=== PATIENT | female | born 1955 | race Caucasian/White ===

== ENCOUNTER → 2019-01-24 | Outpatient (CLI) | payer OTHER | END | disposition home or self-care (01) | LOC: LABPAT 13:40 | PROVIDERS: ATTEND Orthopaedic Surgery Sports Medicine | DX: Z01.812 Encounter for preprocedural laboratory examination (principal) | CPT/HCPCS: 87070 ==

== ENCOUNTER 2019-02-09 12:30 | Day surgery (SDC) | payer OTHER ==
[2019-02-02 09:00] VITALS: BMI 28.6
[~2019-02-09 12:30] MED LIST: ACETAMINOPHEN TAB 325 MG TAB PO PRN; ACETAMINOPHEN TAB 500 MG TAB PO ONE; BISACODYL 10 MG SUPP RECTAL PRN; DEXAMETHASONE SOD PHOSPHATE 10 MG/ML 1 ML VIAL IV ONE; DIAZEPAM 5 MG TAB PO PRN; GABAPENTIN 300 MG CAP PO ONE; HYDROcodone/APAP 10-325MG 1 EACH TAB PO PRN; HYDROcodone/APAP 5-325MG 1 EACH TAB PO PRN; HYDROmorphone 0.5 MG/0.5 ML SYRINGE IVP PRN; HYDROmorphone 1 MG/ML 1 ML SYRINGE IVP PRN; LIDOCAINE 1% 20 ML VIAL (10MG/ML) FOR IV START INTRADERMA PRN; MAGNESIUM HYDROXIDE 2,400 MG/10 ML CUP PO PRN; MELOXICAM 7.5 MG TAB PO ONE; MIDAZOLAM 2 MG/2 ML VIAL IV PRN; NA PHOS,M-B/NA PHOS,DI-BA 133 ML ENEMA RECTAL PRN; NALOXONE 0.4 MG/ML 1 ML VIAL IV PRN; ONDANSETRON 4 MG/2 ML VIAL IVP ONE; ONDANSETRON 4 MG/2 ML VIAL IVP PRN; ROPIVACAINE 246.25 MG, EPINEPHrine 0.5 MG, KETOROLAC 30 MG, cloNIDine HCL/PF 80 MCG, WA... MISCELLANE ONE; SCOPOLAMINE 1.5MG/72HR PATCH TRANSDERM ONE; TEMAZEPAM 15 MG CAP PO PRN; TRANEXAMIC ACID 1,000 MG in SODIUM CHLORIDE 0.9% 100 ML IVPB ONE; traMADol 50 MG TAB PO PRN
[2019-02-09] MEDS: LACTATED RINGERS 1,000 ML IV SCH ×2 (13:27→19:34)
[2019-02-09] MEDS ORDERED: fentaNYL (PF) 50 MCG/ML 2 ML AMP ONE (14:14)
[2019-02-09] MEDS ORDERED: PROPOFOL 10 MG/ML 20 ML VIAL IV ONE (14:14)
[2019-02-09] MEDS ORDERED: KETAMINE 10 MG/ML 20 ML VIAL ONE (14:14)
[2019-02-09] MEDS ORDERED: MIDAZOLAM 2 MG/2 ML VIAL ONE (14:14)
[2019-02-09] MEDS ORDERED: MORPHINE SULFATE (PF) 0.3 MG/0.3 ML SYR ONE (14:14)
[2019-02-09] MEDS ORDERED: TRANEXAMIC ACID 1,000 MG/10 ML VIAL ONE (14:14)
[2019-02-09] MEDS ORDERED: SODIUM CHLORIDE 0.9% 100 ML BAG ONE (14:14)
[2019-02-09] MEDS ORDERED: ceFAZolin 3,000 MG in SODIUM CHLORIDE 0.9% IRRIGATIO 3,000 ML IRRIGATION ONE (14:45)
[2019-02-09] MEDS ORDERED: LACTATED RINGERS 1,000 ML IV ONE (15:42)
--- NOTE | 2019-02-09 16:54 | XR ---
EXAMINATION TYPE: XR knee limited RT DATE OF EXAM: 02/09/2019 COMPARISON: NONE HISTORY: Postop knee surgery TECHNIQUE: 2 views FINDINGS: There is left knee prosthesis. Components are in anatomic position. IMPRESSION: No complicating process seen.
[2019-02-09] MEDS: ASPIRIN 325 MG TAB PO SCH (20:34)
[2019-02-09] MEDS ORDERED: SENNOSIDES-DOCUSATE SODIUM 1 EACH TAB PO SCH (21:00)
[2019-02-10] MEDS ORDERED: MORPHINE SULFATE 2 MG/ML SYRINGE IVP STA (03:19)
[2019-02-10] MEDS ORDERED: diphenhydrAMINE 25 MG CAP PO STA (03:19)
--- NOTE | 2019-02-10 04:10 | P.HPIM ---
History of Present Illness H&P Date: 02/10/19 Chief Complaint: Post right total knee arthroplasty 64-year-old female with history of hypertension hyperlipidemia history of TIA Patient presented for scheduled right total knee arthroplasty due to severe advanced degenerative joint disease of the right knee failed outpatient conservative therapy. Patient tolerated procedure well with no observed immediate postoperative complications pain is well tolerated at this time. Denies any chest pain trouble breathing fevers chills abdominal pain nausea or vomiting. Tolerating by mouth intake. Patient passed urine. Medications reviewed and reconciled with the patient. Currently doing well she asked for medications to help her sleep and medications for itching otherwise she had no concerns at this time. Review of Systems Pertinent positives as noted in HPI. All other systems were reviewed and are negative Past Medical History Past Medical History: CVA/TIA, Hyperlipidemia, Hypertension, Osteoarthritis (OA) Additional Past Medical History / Comment(s): TIA-no residual effects, varicose veins, History of Any Multi-Drug Resistant Organisms: None Reported Past Surgical History: Back Surgery, Tonsillectomy Additional Past Surgical History / Comment(s): band and 6 screws in back, felisha hip replacement Past Anesthesia/Blood Transfusion Reactions: No Reported Reaction Past Psychological History: No Psychological Hx Reported Smoking Status: Former smoker Past Alcohol Use History: Occasional Additional Past Alcohol Use History / Comment(s): quit smoking 30 yrs ago, smoked for 5 yrs, "light smoker" Past Drug Use History: None Reported - Past Family History Mother Family Medical History: Cancer Additional Family Medical History / Comment(s): ovarian Medications and Allergies Home Medications Medication Instructions Recorded Confirmed Type Aspirin [Adult Low Dose Aspirin EC] 81 mg PO DAILY 02/02/19 02/09/19 History Atorvastatin [Lipitor] 40 mg PO DAILY 02/02/19 02/09/19 History Ferrous Sulfate [Iron] 650 mg PO DAILY 02/02/19 02/09/19 History Ibuprofen [Motrin] 800 mg PO BID PRN 02/02/19 02/09/19 History Lisinopril [Zestril] 5 mg PO HS 02/02/19 02/09/19 History Living Well Heel And Smooth 1 tab PO DAILY 02/02/19 02/09/19 History QUEtiapine [SEROquel] 100 mg PO HS 02/02/19 02/09/19 History Tamalex 2 tab PO DAILY 02/02/19 02/09/19 History Terbinafine HCl [LamISIL] 250 mg PO DAILY 02/02/19 02/09/19 History Allergies Allergy/AdvReac Type Severity Reaction Status Date / Time Penicillins Allergy Rash/Hives Verified 02/09/19 13:05 Physical Exam Vitals: Vital Signs Temp Pulse Resp BP Pulse Ox 02/09/19 20:30 90 97/68 95 02/09/19 20:15 85 108/72 93 L 02/09/19 20:00 89 117/75 92 L 02/09/19 19:45 87 105/67 93 L 02/09/19 19:30 91 97/70 93 L 02/09/19 19:16 97.8 F 87 16 119/80 94 L 02/09/19 19:15 86 105/72 97 02/09/19 19:00 87 106/67 95 02/09/19 18:45 84 100/69 97 02/09/19 18:30 81 110/69 98 02/09/19 18:26 90 16 124/74 97 02/09/19 18:00 97.8 F 83 16 116/76 97 02/09/19 17:30 75 16 112/62 97 02/09/19 17:19 75 16 109/59 99 02/09/19 17:05 76 16 109/59 98 02/09/19 16:49 76 16 110/59 97 02/09/19 16:34 80 16 110/59 92 L 02/09/19 16:19 97.5 F L 81 12 110/70 94 L 02/09/19 13:25 97 F L 80 16 134/79 96 Intake and Output 02/09/19 02/09/19 02/10/19 14:59 22:59 06:59 Intake Total 1051 300 Output Total 100 Balance 951 300 Intake: IV 1051 300 Output: Estimated Blood Loss 100 Other: Voiding Method Toilet # Voids 1 Weight 86.183 kg Constitutional: No acute distress, conversant, pleasant Eyes: Anicteric sclerae, moist conjunctiva, no lid-lag Pupils equal round reactive to light ENMT: NC/AT Oropharynx clear, no erythema, exudates Neck: Supple, FROM, no masses, or JVD No carotid bruits No thyromegaly Lungs: Clear to auscultation Clear to percussion Normal respiratory effort, no accessory muscle use Cardiovascular: Heart regular in rate and rhythm, No murmurs, gallops, or rubs No peripheral edema Abdominal: Soft Nontender, no guarding, rebound or rigidity Abdomen moving with respiration Normoactive bowel sounds No hepatomegaly, No splenomegaly No palpable mass No abdominal wall hernia noted Skin: Normal temperature, tone, texture, turgor No induration No subcutaneous nodules No rash, lesions No ulcers Extremities: No digital cyanosis No clubbing Pedal pulses intact and symmetrical Radial pulses intact and symmetrical No calf tenderness Psychiatric: Alert and oriented to person, place and time Appropriate affect fair judgment Neuro Muscles Strength 5/5 in all 4 extremities except for limited exam over right lower extremity secondary to status post op Sensation to light touch grossly present throughout Cranial nerves II-XII grossly intact No focal sensory deficits Lymphatics: no palpable cervical or supraclavicular , or inguinal lymph nodes Thrombosis Risk Factor Assmnt - Choose All That Apply Any of the Below Risk Factors Present?: Yes Each Factor Represents 1 point: Obesity (BMI >25) Other Risk Factors: Yes Each Risk Factor Represents 2 Points: Age 61-74 years Other congenital or acquired thrombophilia - If yes, enter type in comment: Yes Each Risk Factor Represents 5 Points: Elective major lower extremity arthoplasty Thrombosis Risk Factor Assessment Total Risk Factor Score: 8 Thrombosis Risk Factor Assessment Level: High Risk Assessment and Plan Assessment: 63-year-old female with history of osteoarthritis and hypertension admitted under orthopedics for right total knee arthroplasty due to severe advanced degenerative joint disease medicine was consulted for medical management postoperatively currently patient has no active complaints Plan: Severe advanced degenerative joint disease status post right total knee arthroplasty Pain control and DVT prophylaxis per orthopedics Chronic conditions Hypertension Hyperlipidemia History of TIA Resume home meds Follow-up morning labs Medications reviewed and reconciled Encouraged to use incentive spirometry Thank you for allowing us to participate in the care of this patient. Do not hesitate to contact us with questions. Someone can be reached from the [facility] hospitalist group at all hours of the day at [phone].
[2019-02-10] MEDS: LACTATED RINGERS 1,000 ML IV SCH ×2 (05:34)
--- NOTE | 2019-02-10 05:49 | OP ---
OPERATIVE REPORT DATE OF PROCEDURE: 02/09/2019 SURGEON: Harley Nuñez MD. STEEL POURER: Gino VILLALBA. PREOPERATIVE DIAGNOSIS: Right knee osteoarthrosis. POSTOPERATIVE DIAGNOSIS: Right knee osteoarthrosis. OPERATION: Right total knee arthroplasty. ANESTHESIA: Spinal with sedation. ESTIMATED BLOOD LOSS: 100 mL. TOURNIQUET TIME: Tourniquet time was 54 minutes at 250 mmHg. COMPLICATIONS: None apparent. DRAINS: None. DISPOSITION: Postanesthesia care unit. INDICATIONS: Tiffanie is a very pleasant 63-year-old female with longstanding history of right knee pain. History and physical examination are consistent with advanced right knee osteoarthrosis. She has been through significant nonoperative management up to this point. Further treatment options were discussed and she has decided to go for the right total knee arthroplasty. The risks of procedure were discussed with her in detail. These risks include, but are not limited to risk of infection, nerve damage, bleeding, pain and risk of deep vein thrombosis which could lead to fatal pulmonary embolism. There is also risk of loosening of the implant which could require revision operation. The patient understands these risks. All of her questions were answered to her satisfaction. An appropriate informed consent was obtained. DESCRIPTION OF PROCEDURE: The patient identified in preoperative holding area. Surgical sites marked by both the patient and myself. She was given 2 grams of Ancef IV for prophylactic purposes. She was then transferred to the operative suite. She was placed supine on the operating room table. Spinal anesthetic was then administered and dosed per the anesthesia department without apparent complication. Examination under anesthesia was then performed. The patient was 2 to 3 degrees shy of full extension. She had 100 degrees of flexion. The medial collateral ligament, lateral collateral ligament and posterior cruciate ligaments were stable. Tourniquet was then placed high on the right upper thigh well-padded in preparation for surgery. The patient's right lower extremity was then prepped and draped in usual sterile fashion. Standard surgical pause then undertaken to ensure that we were operating the correct site and that appropriate preoperative antibiotics were given. All staff in the room in agreement. We proceeded. The outlines of the patella were marked surgical pen. A planned 12 cm vertical incision centered over the patella was marked with surgical pen. Leg was then exsanguinated with an Esmarch dressing. The knee was then flexed and tourniquet was inflated to 250 mmHg. The total tourniquet time for the procedure was 54 minutes. Incision was then made with a 10 blade scalpel. Dissection carried down sharply of overlying fascia. Great care was taken to minimize the skin flaps. The knee was then exposed using standard medial parapatellar approach. A small cuff of quadriceps tendon was then left for suturing. She was in a mild amount of varus preoperatively. A standard medial release was then made. Superficial medial collateral ligament was dissected off the bone around to the posterior aspect of the proximal tibia. The medial meniscus was then excised as well. The lateral meniscus was also released anteriorly. The leg was then externally rotated. The patella was everted. The knee was flexed. The retractors were then placed to protect the collateral ligaments. I then proceeded to remove the infrapatellar fat pad. This was excised sharply, tangentially with the fibers of the patellar tendon. I then proceeded to remove the peripheral osteophytes. She had extensive peripheral osteophytes. This was done with rongeur. I then proceeded with the distal femoral resection. She did have near full extension. The planned 9 mm resection was then done. The femoral canal was then entered in midline of the femur approximately 10 mm anterior to the origin of the posterior cruciate ligament. The stephanie was then advanced down the center of the femur and placed intramedullary. Based on the preoperative radiographs, the angle between the anatomic and mechanical axis of the femur was approximately 4 to 5 degrees. The valgus angle of the distal femoral cutting guide was then set at 4 degrees for the right knee. This femoral cutting guide was then advanced over the intramedullary stephanie. This was seated firmly against the femur. I then as mentioned planned to take 9 mm off the distal femur. The cutting block was then secured onto the femur with pins. The jig was then removed. The distal femoral cut was made through the slot of the block. The pins were then removed and the distal femoral cutting block was removed. The accuracy of the distal femoral cuts was checked with 2 flat bars. I then proceed with femoral sizing. Posterior referencing sizing guide was held firmly against the resected distal surface of the femur. The posterior condyles were resting on the posterior plane of the guide. The sizing stylus was then placed onto the anterior femur. The size was measured as a size 5. I then assessed for femoral rotation. The plan was for 3 degrees of external rotation. Three degrees of external rotation was placed onto the jig. These holes were then marked. I then confirmed the right rotation by 3 separate methods. This done using the epicondylar axis as well as Whitesides line and posterior referencing. It was deemed that the external rotation was proper. I then went forward with placing the femoral cutting block. This was placed over the previously placed pin holes. The Dick wing was then placed on the anterior slots to ensure that we would not notch the anterior femur with the anterior femoral cut. I then proceed with the anterior femoral cut. This was flush with the anterior cortex of the femur. Posterior cuts were then made followed by the anterior chamfer cut, then the posterior chamfer cut. The cutting block was then removed. Throughout the resection, the collateral ligaments were protected with retractors. I then placed a trial size 5 femur. It fit very nice medial-lateral and fit flush with the distal end of the femur. The drill holes were then made. I then proceeded with the tibial cut. I planned for cruciate retaining knee. The guide was placed in separate varus valgus and for slope. The height was set for approximate 2 mm resection from the medial tibial plateau which was the lower side. I was happy with the alignment and amount of resection. The cutting block was then pinned to the proximal tibia. The alignment stephanie was removed. The proximal tibia was resected with a reciprocating saw. Again this was done with retractors protecting the collateral ligaments as well as the posterior cruciate ligament. I then proceeded to evaluate the flexion and extension gaps. A 10 mm block was then placed. The flexion and extension gaps were equal. I then proceeded with resection of posterior osteophytes. She had very minimal posterior osteophytes. This was done using a curved osteotome. The resected posterior osteophytes and the posterior capsule stripping was also done off the posterior aspect of the femur at this time. The osteophytes were removed. I then proceed to resection of patella. The thickness of the patella was measured using the caliper. The thickness was 22 mm. The thickness of the anticipated patellar dome was taken into account. The resection was performed and confirmed to be equal in 4 quadrants using a caliper. Approximately 14 mm of bone remained after resection. A 29 x 8 standard patellar trial was then placed. The holes were drilled and the trial was then placed. I then proceed with sizing tibial plate. A size D tibial plate fit very nicely. I then placed the trial femur, the tibial tray and the patellar button. A 10 mm trial tibial insert was also placed. The components fit very nicely. She had full extension and flexion. The extension and flexion gaps were equal and stable, both varus and valgus stress. The patella tracked appropriately. Tibial tray rotation was marked with a Bovie. This was externally rotated properly. I then proceeded with tibial preparation. I first drilled the femoral holes, removed femoral component. The tibial tray was then set for proper external rotation as well as mediolateral placement onto the tibia. It was then pinned into place. I then proceeded with punching the keel. I then decided to proceed with cementing of all of our components. The knee was thoroughly irrigated with sterile saline solution via pulse lavage. The lateral genicular artery was identified and cauterized. All blood was removed from the bone of the tibia, femur and patella with pulse lavage. I then proceed with cementing. Two packs of antibiotic bone cement were prepared on the back table by the surgical device sales representative. I then proceed with cementing of the tibia first. The cement was impacted into the keel as well as deeply seated in the bone. A second coat of cement was then placed. The tibia was then impacted into place. Excess cement was removed with Cushings and Jokers. I then proceeded with cementing the femoral component. The femoral component was also cemented using standard technique. Excess cement was removed. A 10 mm trial insert was then placed into the knee. It was brought into full extension with a constant axial load placed until the cement had hardened. The patellar component was then cemented. This held firmly with a compressive device until the cement had dried. When the cement had dried, the knee was taken out of extension. All excess cement was removed from around the prosthesis. I then trialed the knee with 10 mm insert. The flexion and extension gaps were appropriate. The knee was stable. It came into full extension. I decided to go forward with the 10 mm cross-linked cruciate-retaining tibial insert. Polyethylene was then placed onto the tibial tray and locked into place. The knee was then reduced. The knee was again further irrigated with sterile saline solution with antibiotic added. The tourniquet was then deflated. Total tourniquet time for the procedure was 54 minutes. Final components were Tamika Persona size 5 cruciate-retaining femoral component, a size D tibial tray, a 10 mm medial congruent cruciate-retaining polyethylene insert, and a 29 x 8 mm patella. I then proceeded with closure. Again, the knee was thoroughly irrigated. The quadriceps tendon and the medial retinaculum were reapproximated with #2 Ethibond suture. The extensor mechanism was then closed with a running #2 Quill suture. Subcutaneous tissues were then closed with 2-0 Vicryl interrupted suture. The skin was closed with a running 3-0 Quill suture. Dermabond was then applied to the incision. Sterile compressive dressing was then applied. All sponge and needle counts were deemed correct prior to closure. The patient tolerated the procedure without apparent complication. She was transferred recovery room in stable condition. MMODL / IJN: [id number] /
[2019-02-10] MEDS: ASPIRIN 325 MG TAB PO SCH (07:20)
[2019-02-10 07:28] VITALS: BP 111/76; PULSE 72; RESP 14; TEMP 98.5
[2019-02-10 08:33] LABS: Basophils # (A) 0.1 k/uL (0-0.2); Basophils % (A) 1 %; Eosinophils % (A) 0 %; HCT 36.6 % (34.0-46.0); HGB 11.9 gm/dL (11.4-16.0); Lymphocytes # (A) 0.9 k/uL (1.0-4.8); Lymphocytes % (A) 10 %; MCH 31.3 pg (25.0-35.0); MCHC 32.4 g/dL (31.0-37.0); MCV 96.6 fL (80.0-100.0); Mean Platelet Volume 7.7; Monocytes # (A) 0.4 k/uL (0-1.0); Monocytes % (A) 5 %; Neutrophils # (A) 7.6 k/uL (1.3-7.7); Neutrophils % (A) 83 %; Platelet Count 218 k/uL (150-450); RBC 3.78 m/uL (3.80-5.40); RDW 13.9 % (11.5-15.5); WBC 9.2 k/uL (3.8-10.6)
[2019-02-10] MEDS ORDERED: ATORVASTATIN 40 MG TAB PO SCH (09:00)
--- NOTE | 2019-02-10 09:15 | P.DS ---
Providers Expected date of discharge: 02/10/19 Attending physician: Harley Nuñez Consults: 02/09/19 12:03 Consult Physician Routine Consulting Provider: Tali Physician Consult Reason/Comments: post op medical management Do you want consulting provider notified?: Yes Primary care physician: [place] Tuttle - Discharge Diagnosis(es) (1) Osteoarthritis of right knee Patient was admitted to the OR on 02/09/2019 to undergo a right total knee arthroplasty. She had failed conservative measures an outpatient and desired to proceed with elective surgery after given informed consent.. She underwent the above procedure which she tolerated well without complication. Postoperative hospital course has remained without complication. On day of discharge she is afebrile, vital signs stable, labs within acceptable ranges, tolerating by mouth meds and diet, voiding without difficulty, positive flatus, denies abdominal pain or calf pain, pain is controlled on oral pain medication and has no new complaints. Wound is benign, neurovascular status is intact, calf is soft and nontender, abdomen soft and nontender. Review of systems is negative for numbness, tingling, fever, chills, chest pain, shortness of breath, nausea, vomiting, dizziness, headaches, slurred speech or other. Current Visit: Yes Status: Acute Priority: Medium (2) Status post total right knee replacement Current Visit: Yes Status: Acute Procedures: Right TKA Patient Condition at Discharge: Good Plan - Discharge Summary Discharge Rx Participant: Yes New Discharge Prescriptions: New Aspirin 325 mg PO BID #60 tab Docusate [Colace] 100 mg PO BID #60 capsule HYDROcodone/APAP 7.5-325MG [[place] 7.5-325] 1 - 2 each PO Q6HR PRN #56 tab PRN Reason: Pain No Action QUEtiapine [SEROquel] 100 mg PO HS Terbinafine HCl [LamISIL] 250 mg PO DAILY Ferrous Sulfate [Iron] 650 mg PO DAILY Atorvastatin [Lipitor] 40 mg PO DAILY Ibuprofen [Motrin] 800 mg PO BID PRN PRN Reason: Pain Aspirin [Adult Low Dose Aspirin EC] 81 mg PO DAILY Lisinopril [Zestril] 5 mg PO HS Tamalex 2 tab PO DAILY Living Well Heel And Smooth 1 tab PO DAILY Discharge Medication List Aspirin [Adult Low Dose Aspirin EC] 81 mg PO DAILY 02/02/19 [History] Atorvastatin [Lipitor] 40 mg PO DAILY 02/02/19 [History] Ferrous Sulfate [Iron] 650 mg PO DAILY 02/02/19 [History] Ibuprofen [Motrin] 800 mg PO BID PRN 02/02/19 [History] Lisinopril [Zestril] 5 mg PO HS 02/02/19 [History] Living Well Heel And Smooth 1 tab PO DAILY 02/02/19 [History] QUEtiapine [SEROquel] 100 mg PO HS 02/02/19 [History] Tamalex 2 tab PO DAILY 02/02/19 [History] Terbinafine HCl [LamISIL] 250 mg PO DAILY 02/02/19 [History] Aspirin 325 mg PO BID #60 tab 02/10/19 [Rx] Docusate [Colace] 100 mg PO BID #60 capsule 02/10/19 [Rx] HYDROcodone/APAP 7.5-325MG [[place] 7.5-325] 1 - 2 each PO Q6HR PRN #56 tab 02/10/19 [Rx] Follow up Appointment(s)/Referral(s): Harley Nuñez MD [STAFF PHYSICIAN] - 10 Days Activity/Diet/Wound Care/Special Instructions: Keep wound clean and dry Take meds as directed Follow-up with Dr. Nuñez in office Weight bear as tolerated May shower in 3 days if no bleeding Discharge Disposition: HOME WITH HOME HEALTH SERVICES
[2019-02-10] MEDS ORDERED: diphenhydrAMINE 50 MG CAP PO STA (10:47)
[2019-02-10] MEDS ORDERED: MULTIVITAMINS, THERA 1 EACH TAB PO SCH (12:00)
[2019-02-10] MEDS ORDERED: LISINOPRIL 5 MG TAB PO SCH (21:00)
[2019-02-10] MEDS ORDERED: QUEtiapine 100 MG TAB PO SCH (21:00)
== END 2019-02-10 12:54 | disposition home health service (06) ==
LOC: OR 12:30 → 4SSUR 16:19 → OR 02-10 12:54
PROVIDERS: ATTEND Orthopaedic Surgery Sports Medicine
DX: M17.11 Unilateral primary osteoarthritis, right knee (principal); I10 Essential (primary) hypertension; E78.5 Hyperlipidemia, unspecified; Z86.73 Personal history of transient ischemic attack (TIA), and cerebral infarction without residual deficits; Z79.82 Long term (current) use of aspirin; Z87.891 Personal history of nicotine dependence; Z88.0 Allergy status to penicillin; Z79.1 Long term (current) use of non-steroidal anti-inflammatories (NSAID); Z79.899 Other long term (current) drug therapy; Z80.9 Family history of malignant neoplasm, unspecified; Z98.890 Other specified postprocedural states; Z96.643 Presence of artificial hip joint, bilateral
CPT/HCPCS: 97161; 85025; 88300; 73560; 27447; C1776; C1713; J2250; J0171; J1100; J0690 ×3; J2405; J2274; J3010; J1885; J2270; J2795; J2704; J0735

== ENCOUNTER → 2019-07-01 | Outpatient (CLI) | payer OTHER ==
[2019-07-01 11:17] LABS: Appearance,Urine Clear (Clear); Bacteria,Urine Occasional /hpf; Bilirubin,Urine Negative (Negative); Blood,Urine Negative (Negative); Color,Urine Yellow; Glucose,Urine (UA) Negative (Negative); Ketones,Urine Negative (Negative); Leukocyte Esterase,Urine Small (Negative); Mucus,Urine Rare /hpf; Nitrite,Urine Negative (Negative); Protein,Urine Negative (Negative); Specific Gravity,Urine 1.013 (1.001-1.035); Squamous Epithelial Cell,Urine 1 /hpf (0-4); Urobilinogen,Urine <2.0 mg/dL (<2.0); WBC,Urine 10 /hpf (0-5)
[2019-07-01 11:18] LABS: HCT 35.4 % (34.0-46.0); HGB 11.2 gm/dL (11.4-16.0); MCH 28.9 pg (25.0-35.0); MCHC 31.6 g/dL (31.0-37.0); MCV 91.4 fL (80.0-100.0); Mean Platelet Volume 7.7; Platelet Count 242 k/uL (150-450); RBC 3.87 m/uL (3.80-5.40); RDW 14.5 % (11.5-15.5)
[2019-07-01 11:26] LABS: INR 0.9 (<1.2); Partial Thromboplastin Time 22.9 sec (22.0-30.0); Prothrombin Time 9.8 sec (9.0-12.0)
[2019-07-01 11:27] LABS: Albumin 4.1 g/dL (3.5-5.0); Calcium 9.3 mg/dL (8.4-10.2); Potassium 4.6 mmol/L (3.5-5.1); Total Bilirubin 0.6 mg/dL (0.2-1.3); Total Protein 7.1 g/dL (6.3-8.2)
== END | disposition home or self-care (01) ==
LOC: LABPAT 10:39
PROVIDERS: ATTEND Orthopaedic Surgery Sports Medicine
DX: Z01.812 Encounter for preprocedural laboratory examination (principal); M17.12 Unilateral primary osteoarthritis, left knee
CPT/HCPCS: 36415; 80053; 81001; 85027; 85610; 85730; 87070

== ENCOUNTER 2019-07-13 13:07 | Day surgery (SDC) | payer OTHER ==
[~2019-07-13 13:07] MED LIST changes: -ACETAMINOPHEN TAB 325 MG TAB PO PRN; -BISACODYL 10 MG SUPP RECTAL PRN; -DEXAMETHASONE SOD PHOSPHATE 10 MG/ML 1 ML VIAL IV ONE; -DIAZEPAM 5 MG TAB PO PRN; -HYDROcodone/APAP 10-325MG 1 EACH TAB PO PRN; -HYDROcodone/APAP 5-325MG 1 EACH TAB PO PRN; -HYDROmorphone 0.5 MG/0.5 ML SYRINGE IVP PRN; -HYDROmorphone 1 MG/ML 1 ML SYRINGE IVP PRN; -LIDOCAINE 1% 20 ML VIAL (10MG/ML) FOR IV START INTRADERMA PRN; -MAGNESIUM HYDROXIDE 2,400 MG/10 ML CUP PO PRN; -MIDAZOLAM 2 MG/2 ML VIAL IV PRN; -NA PHOS,M-B/NA PHOS,DI-BA 133 ML ENEMA RECTAL PRN; -NALOXONE 0.4 MG/ML 1 ML VIAL IV PRN; -ONDANSETRON 4 MG/2 ML VIAL IVP PRN; -ROPIVACAINE 246.25 MG, EPINEPHrine 0.5 MG, KETOROLAC 30 MG, cloNIDine HCL/PF 80 MCG, WA... MISCELLANE ONE; -SCOPOLAMINE 1.5MG/72HR PATCH TRANSDERM ONE; -TEMAZEPAM 15 MG CAP PO PRN; -traMADol 50 MG TAB PO PRN
[2019-07-13] MEDS ORDERED: LACTATED RINGERS 1,000 ML IV ONE ×2 (13:50→15:36)
[2019-07-13] MEDS ORDERED: MIDAZOLAM 2 MG/2 ML VIAL IVP ONE (13:57)
[2019-07-13] MEDS ORDERED: fentaNYL (PF) 50 MCG/ML 2 ML AMP IVP ONE (13:59)
[2019-07-13] MEDS ORDERED: NEOSTIGMINE 1 MG/ML 10 ML VIAL ONE (14:16)
[2019-07-13] MEDS ORDERED: GLYCOPYRROLATE 0.2 MG/ML 2 ML VIAL ONE (14:16)
[2019-07-13] MEDS ORDERED: fentaNYL (PF) 50 MCG/ML 2 ML AMP ONE (14:16)
[2019-07-13] MEDS ORDERED: TRANEXAMIC ACID 1,000 MG/10 ML VIAL ONE (14:16)
[2019-07-13] MEDS ORDERED: PROPOFOL 10 MG/ML 20 ML VIAL IV ONE (14:16)
[2019-07-13] MEDS ORDERED: MIDAZOLAM 2 MG/2 ML VIAL ONE (14:16)
[2019-07-13] MEDS ORDERED: SUCCINYLCHOLINE CHLORIDE 100 MG/5 ML SYR IV ONE (14:16)
[2019-07-13] MEDS ORDERED: SODIUM CHLORIDE 0.9% 100 ML BAG ONE (14:16)
[2019-07-13] MEDS ORDERED: ePHEDrine SULFATE/0.9% NACL/PF 50 MG/5 ML SYRINGE IV ONE (14:16)
[2019-07-13] MEDS ORDERED: LIDOCAINE 1% INJ 10MG/ML (20 ML MDV) ONE (14:16)
[2019-07-13] MEDS ORDERED: ROCURONIUM BROMIDE 10 MG/ML 5 ML VIAL IV ONE (14:16)
[2019-07-13] MEDS ORDERED: ceFAZolin 3,000 MG in SODIUM CHLORIDE 0.9% IRRIGATIO 3,000 ML IRRIGATION ONE (14:51)
[2019-07-13] MEDS: ROPIVACAINE 246.25 MG, EPINEPHrine 0.5 MG, KETOROLAC 30 MG, cloNIDine HCL/PF 80 MCG, WA... MISCELLANE ONE ×10 (15:07→15:35)
[2019-07-13] MEDS ORDERED: ROPIVACAINE 0.2%-NS ON-Q PUMP 1,090 MG, EMPTY PAIN BALL 1 EACH MISCELLANE PRN (16:16)
[2019-07-13] MEDS ORDERED: TEMAZEPAM 15 MG CAP PO PRN (16:23)
[2019-07-13] MEDS ORDERED: NA PHOS,M-B/NA PHOS,DI-BA 133 ML ENEMA RECTAL PRN (16:23)
[2019-07-13] MEDS ORDERED: BISACODYL 10 MG SUPP RECTAL PRN (16:23)
[2019-07-13] MEDS ORDERED: HYDROmorphone 1 MG/ML 1 ML SYRINGE IVP PRN (16:23)
[2019-07-13] MEDS ORDERED: HYDROmorphone 0.5 MG/0.5 ML SYRINGE IVP PRN ×2 (16:23)
[2019-07-13] MEDS ORDERED: NALOXONE 0.4 MG/ML 1 ML VIAL IV PRN (16:23)
[2019-07-13] MEDS ORDERED: ONDANSETRON 4 MG/2 ML VIAL IVP PRN (16:23)
[2019-07-13] MEDS ORDERED: MAGNESIUM HYDROXIDE 2,400 MG/10 ML CUP PO PRN (16:23)
[2019-07-13] MEDS ORDERED: HYDROcodone/APAP 7.5-325MG 1 EACH TAB PO PRN (16:27)
[2019-07-13] MEDS ORDERED: HYDROmorphone 0.5 MG/0.5 ML SYRINGE IVP ONE (16:55)
--- NOTE | 2019-07-13 16:55 | XR ---
EXAMINATION TYPE: XR knee limited LT DATE OF EXAM: 07/13/2019 COMPARISON: None HISTORY: Postop evaluation TECHNIQUE: 2 view left knee FINDINGS: Tibial femoral compartment syndrome place. Soft tissue changes from surgery are evident. No acute fractures or dislocations are evident. IMPRESSION: 1. No acute fractures post knee revision
[2019-07-13] MEDS: LACTATED RINGERS 1,000 ML IV SCH ×2 (17:41→19:44)
[2019-07-13] MEDS: HYDROcodone/APAP 7.5-325MG 1 EACH TAB PO PRN (17:51)
[2019-07-13] MEDS ORDERED: QUEtiapine 100 MG TAB PO SCH (21:00)
[2019-07-13] MEDS ORDERED: SENNOSIDES-DOCUSATE SODIUM 1 EACH TAB PO SCH (21:00)
[2019-07-13] MEDS ORDERED: LISINOPRIL 5 MG TAB PO SCH (21:00)
[2019-07-13] MEDS: ASPIRIN 325 MG TAB PO SCH (21:27)
--- NOTE | 2019-07-13 23:31 | OP ---
OPERATIVE REPORT PROCEDURE: 07/13/2019. SURGEON: Harley Nuñez M.D. JAVA PROGRAMMER ANALYST: Caryn Mast NP. PREOPERATIVE DIAGNOSIS: Left knee osteoarthrosis. POSTOP DIAGNOSIS: Left knee osteoarthrosis. OPERATION PERFORMED: Left total knee arthroplasty. ANESTHESIA: Spinal with sedation. ESTIMATED BLOOD LOSS: 100 mL. TOURNIQUET TIME: 51 minutes at 250 mmHg. COMPLICATIONS: None apparent. DRAINS: None. DISPOSITION: Postanesthesia care unit. INDICATIONS: Tiffanie is a 63-year-old female with longstanding history of left knee pain. History and physical examination are consistent with advanced left knee osteoarthrosis. She has been through significant operative management at this point. Further treatment options were discussed and she has decided to go forward with left total knee arthroplasty. Risks of procedure were discussed with her in detail. These risks included, but were not limited to risk of infection, nerve damage, bleeding, pain, and a small risk of deep vein thrombosis which could lead to fatal pulmonary embolism. There is also risk of loosening of the implant which could require revision operation. The patient understands these risks. All of her questions were answered to her satisfaction. Appropriate informed consent was obtained. DESCRIPTION OF PROCEDURE: Patient identified in preop holding area. Surgical sites marked by both the patient and myself. She was given 2 g of Ancef IV for prophylactic purposes. She was then transferred to the operative suite. She was placed supine on the operative table. Spinal anesthetic was then administered, dosed per the anesthesia without apparent complication. Examination under anesthesia was then performed. The patient was 2-3 degrees shy of full extension. She had 100 degrees of flexion. Medial collateral ligament, lateral collateral ligament posterior cruciate ligaments were stable. Tourniquet was then placed high on the left upper thigh well-padded in preparation for surgery. The patient's left lower extremity then prepped and draped in usual sterile fashion. Standard surgical pause undertaken to ensure that we were operating the correct site and that appropriate preoperative antibiotics were given. All staff were in agreement we proceeded. The outlines of the patella were marked with a surgical pen. A planned 12 cm vertical incision centered over the patella was marked with a surgical pen. Leg was exsanguinated with an Esmarch dressing. The knee was then flexed and the tourniquet was inflated to 250 mmHg. The total tourniquet time for the procedure was 51 minutes. Incision was then made with a 10 blade scalpel. Dissection carried down sharply overlying fascia. Great care was taken to minimize the skin flaps. The knee was then exposed using a standard medial parapatellar approach. A small cuff of quadriceps tendon was then left for suturing. She was in a bit of varus preoperatively. Standard medial release was then made. Superficial medial collateral ligament dissected off the bone around the posterior aspect of the proximal tibia. The medial meniscus was then excised as well. The lateral meniscus was also released anteriorly. The leg was then externally rotated. The patella was everted. The knee was flexed. Retractors were then placed to protect the collateral ligaments. I then proceeded to remove the infrapatellar fat pad. This was excised sharply tangentially with the fibers of the patellar tendon. I then proceeded to remove peripheral osteophytes. This was done with a rongeur. I then proceeded with the distal femoral resection. She did have near full extension. A planned 9 mm resection was then done. The femoral canal was then entered in midline of the femur approximately 10 mm anterior to the origin of the posterior cruciate ligament. The stephanie was then advanced down the center of the femur and placed intramedullary. Based on the preoperative radiographs, the angle between the anatomic and mechanical axis of the femur was approximately 4-5 degrees. The valgus angle of the distal femoral cutting guide was then set at 4 degrees for the left knee. The distal femoral cutting guide was then advanced over the intramedullary stephanie. This was seated firmly against the femur. I then as mentioned planned to take 9 mm off the distal femur. The cutting block was then secured onto the femur with pins. The jig was removed. The distal femoral cut was made through the slot of the block. The pins were then removed. The distal femoral cutting block was removed. The accuracy of the distal femoral cuts was checked with 2 flat bars. I then proceeded to femoral sizing. Posterior referencing sizing guide was held firmly against the resected distal surface of the femur. The posterior condyles were resting on the posterior plane of the guide. The sizing stylus was then placed onto the anterior femur. The size was measured as a size 5. I then assessed for femoral rotation. Plan was for 3 degrees external rotation. Three degrees external rotation was placed onto the jig. These holes were then marked. I then confirmed the rotation by 3 separate methods. This was done using epicondylar axis as well as Whitesides line and posterior referencing. It was deemed that the external rotation was proper. I then went forward with placing the femoral cutting block. This placed over the previously placed pin holes. The Dick wing was then placed onto the anterior slots to ensure that we would not notch the anterior femur with the anterior femoral cut. I then proceed with the anterior femoral cut. This was flush with the anterior cortex of the femur. The posterior cuts were then made followed by the anterior chamfer cut, then the posterior chamfer cut. The cutting block was then removed. Throughout the resection, the collateral ligaments were protected with retractors. I then placed a trial size 5 femur. It fit very nice medial-lateral and fit of fit flush with the distal end of the femur. The drill holes were then made. I then proceeded with the tibial cut. I planned for cruciate retaining knee. The guide was placed and set for varus valgus and for slope. The height set for approximate 2 mm resection from the medial tibial plateau which was the lower side. I was happy with the alignment and the amount of resection. The cutting block was then pinned to the proximal tibia. The alignment stephanie was then removed. The proximal tibia was resected with a reciprocating saw. Again this was done with retractors protecting the collateral ligaments as well as the posterior cruciate ligament. I then proceeded to evaluate the flexion extension gaps. A 10 mm block was then placed. The flexion-extension gaps were equal. I then proceeded to resection of posterior osteophytes. She had very extensive posterior osteophytes. This was done using a curved osteotome. This resected the posterior osteophytes and posterior capsule stripping was also done off the posterior aspect of the femur at this time. The osteophytes were then removed. I then proceeded with resection of the patella. The thickness of patella was measured using a caliper. The thickness was 22 mm. The thickness of the anticipated patellar dome was then taken into account. Resection was then performed and confirmed to be equal in 4 quadrants using a caliper. Approximately 14 mm of bone remained after resection. A 29 x 8 standard patellar trial was then placed. The holes were drilled. The trial was then placed. I then proceeded with sizing the tibial plate. A size D tibial plate fit very nicely. I then placed the trial femur the tibial tray and patellar button. A 10 mm trial tibial insert was also placed. The components fit very nicely. She had full extension and flexion. The extension and flexion gaps were equal and stable to both varus and valgus stress. The patella tracked appropriately. Tibial tray rotation was then marked with a Bovie. This was externally rotated properly. I then proceed with tibial preparation. First drilled the femoral holes and removed femoral component. The tibial tray was then set for proper external rotation as well as mediolateral placement onto the tibia. It was then pinned into place. I then proceeded with punching the keel. I then decided to proceed with cementing of all of our components. The knee was thoroughly irrigated with sterile saline solution via pulse lavage. The lateral geniculate artery was identified and cauterized. All blood was removed from the bone of the tibia, femur and patella with pulse lavage. I then proceeded with cementing. Two packs of antibiotic bone cement was prepared on the back table by the regional vice president surgical sales. I then proceeded with cementing the tibia first. The cement was impacted into the keel as well as deeply seated in the bone. A second coat of cement was then placed. The tibia was then impacted into place. Excess cement was removed with Billy's and Joker's. I then proceed with cementing of the femoral component. The femoral component was also cemented using standard technique. Excess cement was removed. A 10 mm trial insert was then placed into the knee. It was brought into full extension with a constant axial load placed until the cement had hardened. The patellar component was then cemented. This held firmly with a compressive device until the cement had dried. When the cement had dried, the knee was taken out of extension. All excess cement was removed from around the prosthesis. I then trialed the knee with a 10 mm insert. Flexion extension gaps were appropriate. The knee was stable. It came into full extension. I decided to go for the 10 mm cross-linked cruciate-retaining tibial insert. Polyethylene was then placed on the tibial tray and locked into place. The knee was then reduced. The knee was again further irrigated with sterile saline solution with antibiotic added. The tourniquet was then deflated. The total tourniquet time for the procedure was 51 minutes at 250 mmHg. Final components were Tamika Persona size 5 cruciate-retaining femoral component, a size D tibial tray, a 10 mm medial congruent cruciate-retaining tibial polyethylene insert and a 29 x 8 mm patella. I then proceeded with closure. Again, the knee was thoroughly irrigated. The quadriceps tendon and the medial retinaculum were reapproximated with #2 Ethibond suture. The extensor mechanism was then closed with a running #2 Quill suture. Subcutaneous tissues were then closed with 2-0 Vicryl interrupted suture. The skin was closed with a running 3-0 Quill suture. Dermabond was applied to the incision. Sterile compressive dressing was then applied. All sponge and needle counts were deemed correct prior to closure. The patient tolerated the procedure without apparent complication. She was transferred to recovery room in stable condition. MMODL / IJN: [id number] /
[2019-07-14 02:21] VITALS: BP 110/72
[2019-07-14] MEDS: LACTATED RINGERS 1,000 ML IV SCH (05:36)
[2019-07-14] MEDS: HYDROcodone/APAP 7.5-325MG 1 EACH TAB PO PRN (05:36)
--- NOTE | 2019-07-14 07:40 | P.ANPRN ---
Procedure Note - Anesthesia - Nerve Block Performed Left Adductor Canal Infusion Time Out Performed: Yes Date of Procedure: 07/13/19 Procedure Start Time: 14:00 Procedure Stop Time: 14:10 Location of Patient: PreOp Indication: Acute Post-Operative Pain, Dx/Pain Location, Requested by Surgeon Sedation Type: Sedate with meaningful contact maintained Preparation: Sterile Prep Position: Supine Catheter: Indwelling Needle Types: Pajunk Needle Gauge: 21 Ultrasound used to visualize needle placement: Yes Ultrasound used to observe medication spread: Yes Injectate: 0.5% Ropivacaine (see comment for volume) (20ml) Blood Aspirated: No Pain Paresthesia on Injection Noted: No Resistance on Injection: Normal Image Stored and Saved: Yes Events: Uneventful and Well Tolerated
--- NOTE | 2019-07-14 07:41 | P.ANPRN ---
Procedure Note - Anesthesia - Nerve Block Performed Left Other (see comment) Single Time Out Performed: Yes (LEFT IPACK NERVE BLOCK ) Date of Procedure: 07/13/19 Procedure Start Time: 14:00 Procedure Stop Time: 14:10 Location of Patient: PreOp Indication: Acute Post-Operative Pain, Dx/Pain Location, Requested by Surgeon Sedation Type: Sedate with meaningful contact maintained Preparation: Sterile Prep Position: Left Lateral Catheter: None Needle Types: Pajunk Needle Gauge: 21 Ultrasound used to visualize needle placement: Yes Ultrasound used to observe medication spread: Yes Injectate: Other (see comment) (8ml 0.5% ropivcaine + 7ml 2% Lidocaine with 1:200,000 epi) Blood Aspirated: No Pain Paresthesia on Injection Noted: No Resistance on Injection: Normal Image Stored and Saved: Yes Events: Uneventful and Well Tolerated
--- NOTE | 2019-07-14 07:42 | P.PN ---
Progress Note - Text Progress Note Date: 07/14/19 63-year-old female status post left total knee arthroplasty postop day #1. Overall patient is doing well with no complications. VAS ranges from 2-3 out of 10 in severity. She's been ambulating, has not worked with physical therapy yet. No motor sensory deficits. Overall doing well.
[2019-07-14 07:51] VITALS: PULSE 86; RESP 15; TEMP 98.3
[2019-07-14] MEDS ORDERED: HYDROcodone/APAP 10-325MG 1 EACH TAB PO PRN ×2 (08:35)
--- NOTE | 2019-07-14 08:59 | P.DS ---
Providers Expected date of discharge: 07/14/19 Attending physician: Harley Nuñez Consults: 07/13/19 16:23 Consult Physician Routine Consulting Provider: Luke Martinez Consult Reason/Comments: medical management Do you want consulting provider notified?: Yes Primary care physician: Stated None - Discharge Diagnosis(es) (1) Primary osteoarthritis of left knee Current Visit: Yes Status: Acute (2) Status post total left knee replacement Current Visit: Yes Status: Acute Hospital Course: This is a pleasant 63-year-old female last seen in our office with complaints of left knee pain. Patient has known history of degenerative arthritis of the left knee and presented to discuss options. After discussion and consideration, the patient elected to proceed with a left total knee arthroplasty. Patient was seen preoperatively, and medically cleared for surgery by Dr. Tuttle and cardiology. Patient was admitted to [facility] underwent left total knee arthroplasty on 07/13/[address] Harley Nuñez. The procedure was performed without complications or sequelae. The patient is seen and evaluated at bedside today. Pain is well-controlled. Patient has no new complaints today and denies any fevers, chills, nausea, vomiting, or shortness of breath. Vital signs are stable. Dressing is clean dry and intact. Incision looks fine with no erythema or active drainage. Calf is soft and nontender. Patient has full foot and ankle motion without difficulty. Patient's left lower extremity is neurovascularly intact. The patient is orthopedically stable for discharge today. Patient Condition at Discharge: Stable Plan - Discharge Summary New Discharge Prescriptions: New Aspirin 325 mg PO BID #60 tab Sennosides-Docusate Sodium [Senokot-S] 2 tab PO DAILY #30 tablet HYDROcodone/APAP 10-325MG [Mulliken 10-325] 1 tab PO Q4-6H PRN #40 tab PRN Reason: Pain No Action QUEtiapine [SEROquel] 100 mg PO HS Terbinafine HCl [LamISIL] 250 mg PO DAILY Ferrous Sulfate [Iron] 650 mg PO DAILY Atorvastatin [Lipitor] 40 mg PO DAILY Ibuprofen [Motrin] 800 mg PO BID PRN PRN Reason: Pain Aspirin [Adult Low Dose Aspirin EC] 81 mg PO DAILY Lisinopril [Zestril] 5 mg PO HS Tamalex 2 tab PO DAILY Living Well Heel And Smooth 1 tab PO DAILY Aspirin 325 mg PO BID #60 tab Docusate [Colace] 100 mg PO BID #60 capsule HYDROcodone/APAP 7.5-325MG [[place]ulliken 7.5-325] 1 - 2 each PO Q6HR PRN #56 tab PRN Reason: Pain Discharge Medication List Aspirin [Adult Low Dose Aspirin EC] 81 mg PO DAILY 02/02/19 [History] Atorvastatin [Lipitor] 40 mg PO DAILY 02/02/19 [History] Ferrous Sulfate [Iron] 650 mg PO DAILY 02/02/19 [History] Ibuprofen [Motrin] 800 mg PO BID PRN 02/02/19 [History] Lisinopril [Zestril] 5 mg PO HS 02/02/19 [History] Living Well Heel And Smooth 1 tab PO DAILY 02/02/19 [History] QUEtiapine [SEROquel] 100 mg PO HS 02/02/19 [History] Tamalex 2 tab PO DAILY 02/02/19 [History] Terbinafine HCl [LamISIL] 250 mg PO DAILY 02/02/19 [History] Aspirin 325 mg PO BID #60 tab 02/10/19 [Rx] Docusate [Colace] 100 mg PO BID #60 capsule 02/10/19 [Rx] HYDROcodone/APAP 7.5-325MG [Mulliken 7.5-325] 1 - 2 each PO Q6HR PRN #56 tab 02/10/19 [Rx] Aspirin 325 mg PO BID #60 tab 07/14/19 [Rx] HYDROcodone/APAP 10-325MG [[place]ull[place] 10-325] 1 tab PO Q4-6H PRN #40 tab 07/14/19 [Rx] Sennosides-Docusate Sodium [Senokot-S] 2 tab PO DAILY #30 tablet 07/14/19 [Rx] Follow up Appointment(s)/Referral(s): Harley Nuñez MD [STAFF PHYSICIAN] - 10 Days Patient Instructions/Handouts: Knee Replacement (DC) Activity/Diet/Wound Care/Special Instructions: Weightbearing as tolerated with walker Keep incision clean and dry Change dressing daily and as needed May shower in 2 days if no drainage. Aspirin 325 mg twice a day Follow up with Dr. Nuñez in 10 days. Call [facility] with questions or concerns, Discharge Disposition: HOME WITH HOME HEALTH SERVICES
[2019-07-14] MEDS ORDERED: ATORVASTATIN 40 MG TAB PO SCH (09:00)
[2019-07-14] MEDS ORDERED: TERBINAFINE 250 MG TAB PO SCH (09:00)
[2019-07-14 09:47] LABS: Basophils # (A) 0.1 k/uL (0-0.2); Basophils % (A) 1 %; Eosinophils # (A) 0.2 k/uL (0-0.7); Eosinophils % (A) 3 %; HCT 31.2 % (34.0-46.0); HGB 9.8 gm/dL (11.4-16.0); Hypochromasia Slight; Lymphocytes # (A) 0.7 k/uL (1.0-4.8); Lymphocytes % (A) 14 %; MCH 29.5 pg (25.0-35.0); MCHC 31.6 g/dL (31.0-37.0); MCV 93.4 fL (80.0-100.0); Mean Platelet Volume 8.5; Monocytes # (A) 0.3 k/uL (0-1.0); Monocytes % (A) 6 %; Neutrophils # (A) 3.7 k/uL (1.3-7.7); Neutrophils % (A) 75 %; Platelet Count 205 k/uL (150-450); RBC 3.34 m/uL (3.80-5.40); RDW 15.7 % (11.5-15.5); WBC 4.9 k/uL (3.8-10.6)
[2019-07-14] MEDS: ASPIRIN 325 MG TAB PO SCH (10:00)
--- NOTE | 2019-07-15 14:28 | CONS ---
CONSULTATION DATE OF SERVICE: 07/14/2019 REASON FOR CONSULTATION: Advice regarding hypertension and hyperlipidemia, requested by Orthopedic Surgery. HISTORY OF PRESENT ILLNESS: This 63-year-old woman with a past medical history of multiple medical problems including CVA, TIA, hypertension, hyperlipidemia, DJD, and history of back surgery who underwent left total knee arthroplasty by Dr. Nuñez. The patient is being closely monitored. There is no history of any fever, rigors. No history of headache, loss of consciousness, chest pain, or palpitations. PAST MEDICAL HISTORY: History of hypertension, hyperlipidemia, CVA, and TIA. MEDICATIONS: Prior to admission home medications are: 1. Seroquel 100 mg q.h.s. 2. Zestril 5 mg q.h.s. 3. Motrin p.r.n. 4. Iron p.r.n. 5. Colace 100 mg p.o. b.i.d. 6. Lipitor 40 mg p.o. daily. 7. Aspirin 81 mg p.o. daily. 8. Lamisil 250 mg p.o. daily. 10.Hydrocodone 7.5 mg. 11.Senna. ALLERGIES: PENICILLIN. FAMILY HISTORY: History of ovarian cancer in the family. SOCIAL HISTORY: Previous history of smoking. No history of alcohol intake. REVIEW OF SYSTEMS: ENT: No diminished vision. No diminished hearing. CARDIOVASCULAR: No angina or palpitations. RESPIRATORY: As mentioned earlier. GI: No nausea or vomiting. : No dysuria or retention. NERVOUS SYSTEM: No numbness or weakness. ALLERGY/IMMUNOLOGY: No asthma, hayfever. MUSCULOSKELETAL: As mentioned earlier. HEMATOLOGY/ONCOLOGY: No history of anemia. ENDOCRINE: No history of diabetes, hypothyroidism. CONSTITUTIONAL: As mentioned earlier. DERMATOLOGY: Negative. RHEUMATOLOGY: Negative. PSYCHIATRY: As mentioned earlier. PHYSICAL EXAMINATION: Alert and oriented x3. Pulse 86, blood pressure 110/78, respirations 18, temperature 98 degrees, pulse ox 97% on room air. HEENT: Conjunctivae normal. Oral mucosa moist. NECK: No jugular venous distention. CARDIOVASCULAR SYSTEM: S1, S2 muffled. RESPIRATORY SYSTEM: Breath sounds diminished at the bases. No rhonchi. No crackles. ABDOMEN: Soft, nontender. LEGS: Status post left total knee arthroplasty. NERVOUS SYSTEM: No focal deficits. LABS: WBC is 4.8, hemoglobin is 9.8. ASSESSMENT: 1. Status post left total knee joint arthroplasty. 2. Cerebrovascular accident and transient ischemic attack history. 3. Hypertension. 4. Hyperlipidemia. 5. History of degenerative joint disease. 6. History of back surgery. 7. Remote history of nicotine dependence. 8. FULL CODE. RECOMMENDATION: In this 63-year-old woman who presented with multiple complex medical issues, I would recommend to continue the current medications, management, and symptomatic treatment. Otherwise, resume the home medications. DVT prophylaxis. Incentive spirometry. Recommend close followup with the primary physician after discharge. Thank you, Dr. Nuñez, for letting us participate in the care of this patient. MMODL / IJN: [id number] / FRED
== END 2019-07-14 15:17 | disposition home health service (06) ==
LOC: OR 13:07 → 4SSUR 16:40 → OR 07-14 15:17
PROVIDERS: ATTEND Orthopaedic Surgery Sports Medicine
DX: M17.12 Unilateral primary osteoarthritis, left knee (principal); M21.162 Varus deformity, not elsewhere classified, left knee; I10 Essential (primary) hypertension; E78.5 Hyperlipidemia, unspecified; Z86.73 Personal history of transient ischemic attack (TIA), and cerebral infarction without residual deficits; Z87.891 Personal history of nicotine dependence; Z96.651 Presence of right artificial knee joint; Z88.0 Allergy status to penicillin; Z97.3 Presence of spectacles and contact lenses; Z96.643 Presence of artificial hip joint, bilateral; Z82.49 Family history of ischemic heart disease and other diseases of the circulatory system; Z79.82 Long term (current) use of aspirin; Z79.1 Long term (current) use of non-steroidal anti-inflammatories (NSAID); Z79.899 Other long term (current) drug therapy; I49.5 Sick sinus syndrome; Z80.41 Family history of malignant neoplasm of ovary
CPT/HCPCS: 97161; 64448; 64445; 76942; 85025; 88300; 73560; 27447; C1776; C1713; J2250; J0171; J2710; J0690 ×3; J2405; J2001; J3010; J1885; J1170 ×2; J2795 ×2; J0330; J2704; J0735

== ENCOUNTER → 2020-10-04 | Outpatient (CLI) | payer OTHER ==
--- NOTE | 2020-10-04 12:48 | CT ---
EXAMINATION TYPE: CT cervical spine wo con DATE OF EXAM: 10/04/2020 COMPARISON: None HISTORY: cervical pain CT DLP: 379.5 mGycm Automated exposure control for dose reduction was used. TECHNIQUE: CT scan of the cervical spine is obtained without contrast, axial images are obtained, sa gittal and coronal reformatted images are also reviewed. FINDINGS: Sestamibi the spinal canal limited due to resolution artifact. Assessment for disc herniati on limited. Alignment is anatomic. There is multilevel mild degenerative disc disease with moderate changes at C5 -6 and C6-C7. Anterior hypertrophic spurring noted. At C2-C3 there is facet arthropathy. No obvious disc herniation or canal stenosis. Very mild left-pedro ed foraminal encroachment. C3-C4 there is facet arthropathy with mild right-sided foraminal encroachment. No obvious disc hernia tion or canal stenosis. No foraminal encroachment. C4-C5 there is bilateral facet arthropathy with no significant foraminal encroachment. No obvious dis c herniation or canal stenosis. At C5-C6 there is facet arthropathy. There is no obvious foraminal encroachment or canal stenosis. At C6-C7 there is no obvious foraminal encroachment or canal stenosis. At C7-T1 no obvious disc herniation or canal stenosis. Artifact limits assessment of spinal canal. IMPRESSION: 1. Multilevel mild degenerative disc disease with more advanced multilevel facet arthropathy and mild foraminal encroachment as discussed above. No obvious canal stenosis. Consider MRI follow-up.
--- NOTE | 2020-10-04 21:32 | CT ---
EXAMINATION TYPE: CT lumbar spine w con DATE OF EXAM: 10/04/2020 COMPARISON: None. HISTORY: lumbar pain CT DLP: 857.3 mGycm Automated exposure control for dose reduction was used. CONTRAST: CT scan of the lumbar is performed with IV Contrast, patient injected with 100ml mL of Isovue 300. Enhanced CT of the lumbar spine was performed. Bone and soft tissue window settings are submitted as well as coronal and sagittal reconstructions. There are 5 lumbar-type vertebra. There is grade 1 anterolisthesis L5 on S1. Vertebral body heights a re maintained. Slight scoliotic curvature on coronal images. Posterior interpedicular rods and screws transfix L4-S1 levels bilaterally. Metallic disc material L4-L5 level noted. Moderate to severe disc space narrowing L2-L3 and L5-S1 levels Axial images at L2-L3 level show posterior spur disc complex effacing the anterior thecal sac, subtle spondylolisthesis. Moderate right and mild left-sided neural foraminal narrowing. Axial images at L3-L4 level show artifact from surgical change. Mild to moderate broad-based posterio r disc protrusion mildly effaces the anterior thecal sac. Moderate facet arthropathy and ligament fla vum hypertrophy. Patent bilateral neural foramina. Axial images at L4-L5 level show artifact from disc material and posterior fusion hardware. Bilateral laminectomy defects with posterior spinous decompression. [id number] bilateral neural foramina l narrowing from marginal spurring. Axial images at L5-S1 level show posterior decompression. [id number] facet arthropathy. Moderat e to severe bilateral neural foraminal narrowing due to predominantly spondylolisthesis and marginal spurring, left-sided findings more prominent than right. No suspicious enhancement or enhancing masses. There is 1.9 cm thin-walled cyst in the left hepatic l obe. There is 3.3 cm thin-walled thinly kidney axial image 31. Evidence of multifocal cortical volume loss in both kidneys. No suspicious enhancement. IMPRESSION: Multilevel degenerative changes greatest L2-L3 and L5-S1 levels as detailed above. Postsu rgical change L4-S1 level noted.
== END | disposition home or self-care (01) ==
LOC: RADCTMAIN 06:58
PROVIDERS: ATTEND Psychiatry & Neurology Neurology
DX: M50.323 Other cervical disc degeneration at C6-C7 level (principal); M47.812 Spondylosis without myelopathy or radiculopathy, cervical region; M99.71 Connective tissue and disc stenosis of intervertebral foramina of cervical region; M43.17 Spondylolisthesis, lumbosacral region; M99.73 Connective tissue and disc stenosis of intervertebral foramina of lumbar region; M51.26 Other intervertebral disc displacement, lumbar region; M47.816 Spondylosis without myelopathy or radiculopathy, lumbar region
CPT/HCPCS: 72125; 72132; Q9967

== ENCOUNTER → 2021-03-05 | Outpatient (CLI) | payer MEDICARE ==
--- NOTE | 2021-03-05 16:37 | CT ---
EXAMINATION TYPE: CT shoulder RT wo con DATE OF EXAM: 03/05/2021 COMPARISON: None HISTORY: Osteoarthritis CT DLP: 345.8 mGycm Automated exposure control for dose reduction was used. Contrast: None Technique: Axial images 3 mm thick sections. Reconstructed images in the coronal and sagittal plane. Three-D reconstructed images performed on a separate computer by the technologist are reviewed. FINDINGS: Hyperostosis is present along the posterior aspect of the humeral neck extending from the humeral hea d spurring. No acute fractures. The humeral head articulates with the glenoid. The acromiohumeral space is preserved. Acromioclavicul ar junction is normal. There is severe narrowing of the glenohumeral junction compatible with some osteoarthritic degenerati ve change. IMPRESSION: 1. ADVANCED OSTEOARTHRITIC DEGENERATIVE CHANGE AT THE GLENOHUMERAL JUNCTION. 2. HYPEROSTOTIC BONE PRODUCTION FROM THE SPURRING AND EXTENDING POSTERIOR TO THE HUMERAL NECK.
== END | disposition home or self-care (01) ==
LOC: RADCTMAIN 08:56
PROVIDERS: ATTEND Orthopaedic Surgery Sports Medicine
DX: M19.011 Primary osteoarthritis, right shoulder (principal); M89.8X1 Other specified disorders of bone, shoulder

== ENCOUNTER → 2021-03-05 | Outpatient (CLI) | payer MEDICARE ==
[2021-03-05 09:36] LABS: Anisocytosis Slight; HCT 33.4 % (34.0-46.0); HGB 10.1 gm/dL (11.4-16.0); Hypochromasia Marked; MCH 25.4 pg (25.0-35.0); MCHC 30.3 g/dL (31.0-37.0); Mean Platelet Volume 7.9; Platelet Count 290 k/uL (150-450); RBC 3.97 m/uL (3.80-5.40); RDW 18.3 % (11.5-15.5); WBC 4.3 k/uL (3.8-10.6)
[2021-03-05 09:46] LABS: Albumin 3.9 g/dL (3.5-5.0); Calcium 9.4 mg/dL (8.4-10.2); Potassium 4.1 mmol/L (3.5-5.1); Total Bilirubin 0.4 mg/dL (0.2-1.3); Total Protein 6.6 g/dL (6.3-8.2)
[2021-03-05 09:49] LABS: INR 0.9 (<1.2); Prothrombin Time 10.2 sec (9.0-12.0)
[2021-03-05 09:53] LABS: Appearance,Urine Cloudy (Clear); Bacteria,Urine Few /hpf; Bilirubin,Urine Negative (Negative); Blood,Urine Negative (Negative); Color,Urine Yellow; Glucose,Urine (UA) Negative (Negative); Ketones,Urine Negative (Negative); Leukocyte Esterase,Urine Large (Negative); Mucus,Urine Rare /hpf; Nitrite,Urine Negative (Negative); Protein,Urine Negative (Negative); RBC,Urine 2 /hpf (0-5); Specific Gravity,Urine 1.011 (1.001-1.035); Squamous Epithelial Cell,Urine 6 /hpf (0-4); Urobilinogen,Urine <2.0 mg/dL (<2.0); WBC,Urine 18 /hpf (0-5)
== END | disposition home or self-care (01) ==
LOC: LABPAT 08:23
PROVIDERS: ATTEND Orthopaedic Surgery Sports Medicine
DX: Z01.812 Encounter for preprocedural laboratory examination (principal); M19.011 Primary osteoarthritis, right shoulder
CPT/HCPCS: 36415; 80053; 81001; 85027; 85610; 85730; 87070

== ENCOUNTER 2021-03-21 05:34 | Day surgery (SDC) | payer MEDICARE, OTHER ==
[2021-03-19 15:21] VITALS: BMI 28.8
[~2021-03-21 05:34] MED LIST changes: -ACETAMINOPHEN TAB 500 MG TAB PO ONE; +ACETAMINOPHEN TAB 500 MG TAB PO PRN; -GABAPENTIN 300 MG CAP PO ONE; +GABAPENTIN 300 MG CAP PO PRN; -MELOXICAM 7.5 MG TAB PO ONE; -ONDANSETRON 4 MG/2 ML VIAL IVP ONE; +ONDANSETRON 4 MG/2 ML VIAL IVP PRN; -TRANEXAMIC ACID 1,000 MG in SODIUM CHLORIDE 0.9% 100 ML IVPB ONE; +TRANEXAMIC ACID 1,000 MG in SODIUM CHLORIDE 0.9% 100 ML IVPB PRN
[2021-03-21] MEDS ORDERED: LACTATED RINGERS 1,000 ML IV SCH (06:02)
[2021-03-21] MEDS ORDERED: DEXAMETHASONE SOD PHOSPHATE 4 MG/ML 1 ML VIAL IV ONE (06:02)
[2021-03-21] MEDS ORDERED: ONDANSETRON 4 MG/2 ML VIAL IVP ONE (06:02)
[2021-03-21] MEDS ORDERED: LIDOCAINE 1% (10MG/ML) FOR IV START INTRADERMA PRN (06:02)
[2021-03-21] MEDS ORDERED: HYDROmorphone 0.5 MG/0.5 ML SYRINGE IVP PRN ×2 (06:02→10:20)
[2021-03-21] MEDS: MIDAZOLAM 2 MG/2 ML VIAL IV PRN ×2 (07:01→07:06)
[2021-03-21] MEDS ORDERED: ROPIVACAINE 5 MG/ML 30 ML VIAL ONE (08:01)
[2021-03-21] MEDS ORDERED: ROCURONIUM 10 MG/ML (5 ML VIAL) IV ONE (08:01)
[2021-03-21] MEDS ORDERED: ePHEDrine SULFATE/0.9% NACL/PF 50 MG/5 ML SYRINGE IV ONE (08:01)
[2021-03-21] MEDS ORDERED: fentaNYL (PF) 50 MCG/ML 2 ML AMP ONE (08:01)
[2021-03-21] MEDS ORDERED: TRANEXAMIC ACID 1,000 MG/10 ML VIAL ONE (08:01)
[2021-03-21] MEDS ORDERED: SUCCINYLCHOLINE CHLORIDE 100 MG/5 ML SYR IV ONE (08:01)
[2021-03-21] MEDS ORDERED: DEXAMETHASONE SOD PHOSPHATE 4 MG/ML 1 ML VIAL ONE (08:01)
[2021-03-21] MEDS ORDERED: MIDAZOLAM 2 MG/2 ML VIAL ONE (08:01)
[2021-03-21] MEDS ORDERED: SODIUM CHLORIDE 0.9% 100 ML BAG ONE (08:01)
[2021-03-21] MEDS ORDERED: LIDOCAINE 1% INJ 10MG/ML (20 ML MDV) ONE (08:01)
[2021-03-21] MEDS ORDERED: PROPOFOL 10 MG/ML 20 ML VIAL IV ONE (08:01)
[2021-03-21] MEDS ORDERED: GLYCOPYRROLATE 0.2 MG/ML 2 ML VIAL ONE (08:01)
[2021-03-21] MEDS ORDERED: HYDROmorphone (PF) 1 MG/ML ONE (08:01)
[2021-03-21] MEDS ORDERED: NEOSTIGMINE 1 MG/ML 10 ML VIAL ONE (08:01)
[2021-03-21] MEDS ORDERED: VANCOMYCIN 1,000 MG VIAL MISCELLANE ONE ×2 (09:22→09:53)
[2021-03-21] MEDS ORDERED: LACTATED RINGERS 1,000 ML IV ONE (10:06)
[2021-03-21] MEDS ORDERED: HYDROmorphone 0.2 MG/1 ML SYRINGE IVP PRN (10:20)
[2021-03-21] MEDS ORDERED: hydrOXYzine pamoate 25 MG CAP PO PRN (10:20)
[2021-03-21] MEDS ORDERED: ONDANSETRON 4 MG/2 ML VIAL IVP PRN (10:20)
[2021-03-21] MEDS ORDERED: HYDROmorphone 1 MG/ML 1 ML SYRINGE IVP PRN (10:20)
[2021-03-21] MEDS ORDERED: TEMAZEPAM 15 MG CAP PO PRN (10:20)
[2021-03-21] MEDS ORDERED: diphenhydrAMINE 25 MG CAP PO PRN (10:20)
[2021-03-21] MEDS ORDERED: METOCLOPRAMIDE 5 MG/ML 2 ML VIAL IVP PRN (10:20)
[2021-03-21] MEDS ORDERED: HYDROcodone/APAP 10-325MG 1 EACH TAB PO PRN (10:23)
--- NOTE | 2021-03-21 11:18 | XR ---
Right shoulder HISTORY: Postop Single frontal view of the right shoulder Patient is status post right shoulder arthroplasty. There is anatomic alignment. There is an indwelli ng drain. Lucencies present within the soft tissues. Acromioclavicular joint arthropathy noted. Basil ar atelectasis noted in the right lung. IMPRESSION: Orthopedic follow-up
--- NOTE | 2021-03-21 13:17 | P.ANPRN ---
Procedure Note - Anesthesia - Nerve Block Performed Right Interscalene Time Out Performed: Yes (07:) Date of Procedure: 03/21/21 Procedure Start Time: Procedure Stop Time: Location of Patient: PreOp Indication: Acute Post-Operative Pain, Requested by Surgeon (Dr Nuñez) Sedation Type: Sedate with meaningful contact maintained Preparation: Sterile Prep Position: Supine Catheter: None Needle Types: Pajunk Needle Gauge: Other (see comment) (22g) Ultrasound used to visualize needle placement: Yes Ultrasound used to observe medication spread: Yes Injectate: 0.5% Ropivacaine (see comment for volume) (20cc + Decadron 4mg) Blood Aspirated: No Pain Paresthesia on Injection Noted: No Resistance on Injection: Normal Image Stored and Saved: Yes Events: Uneventful and Well Tolerated
--- NOTE | 2021-03-21 13:28 | OP ---
OPERATIVE REPORT DATE OF PROCEDURE: 03/21/2021. SURGEON: Harley Nuñez M.D. CALIBRATION SPECIALIST: Gino Perry PA-C. PREOPERATIVE DIAGNOSIS: Right shoulder osteoarthrosis. POSTOPERATIVE DIAGNOSIS: Right shoulder osteoarthrosis. OPERATION: Right total shoulder arthroplasty. ANESTHESIA: General endotracheal. ESTIMATED BLOOD LOSS: 100 mL. DRAINS: One deep drain. COMPLICATIONS: None apparent. DISPOSITION: Post-Anesthesia Care Unit. INDICATIONS: Tiffanie is a very pleasant 65-year-old female with longstanding right shoulder pain. Workup including x-rays and CT scan revealed advanced osteoarthrosis of the right shoulder. At this point in time, she feels that she has failed conservative management and would like to proceed with operative intervention. The risks of the procedure were discussed with her in detail. These risks include but are not limited to risk of infection, nerve damage, bleeding, pain, instability in the shoulder, loosening of the implants and deep infection. There is also a risk of deep vein thrombosis which could lead to fatal pulmonary embolism. The patient understands the risks. All of her questions with regard to the risks of the procedure were answered to her satisfaction. Appropriate informed consent was obtained. DESCRIPTION OF PROCEDURE: Patient was identified in the preoperative holding area. Surgical site was marked by both the patient and myself. She was given 2 grams of Ancef IV for prophylactic purposes. She was then transported to the operative suite. She was placed supine on the operating room table. General anesthetic was then administered and dosed per the anesthesia department without apparent complication. Examination under anesthesia was then performed. She had 100 degrees of elevation. External rotation at the side was to 20 degrees. She was then placed into the beach chair position, well padded in preparation for surgery. Great care was taken to ensure that her cervical spine was in neutral alignment, well padded and maintained that way throughout the operative procedure. Great care was also taken to ensure that her legs were appropriately padded as well. The patient's right upper extremity was then prepped and draped in the usual sterile fashion. A standard surgical pause was undertaken to ensure that we were operating on the correct site and that appropriate preoperative antibiotics had been given. All staff in the room were in agreement and we proceeded. The acromion, AC joint, clavicle and coracoid were marked with a surgical pen. A planned incision starting at the level of the clavicle and extending distally over the deltopectoral interval approximately 1 cm lateral to the coracoid was marked with a surgical pen. The incision was then made with a 10 blade scalpel. Dissection was carried down sharply to the deltoid fascia. The deltopectoral interval was identified at the level of the clavicle. A small band retractor was then placed under the proximal deltoid. I then released the deltoid fascia on the lateral aspect of the cephalic vein. The vein was preserved and left in its bed medially. The cephalic vein was protected throughout the entire case. I then identified the clavipectoral fascia. This was incised proximally at the level of the coracoacromial ligament. The coracoacromial ligament was left intact. I then used my finger to spread the interval between the conjoint tendon and the subscapularis. I felt for the axillary nerve, which was readily palpable. I then cleared the subacromial and subdeltoid spaces of bursal and scar tissue. I then utilized a Winslow retractor to hold the deltoid and expose the humeral head. I then proceeded with release of the subscapularis and the anterior inferior shoulder capsule. The rotator cuff was inspected. It was found to be intact. The rotator interval was then identified. The course of the biceps tendon was also identified. I then released the rotator interval. It was released at the base of the coracoid and then out laterally. The subscapularis and the capsule released intratendinously. The subscapularis and capsule release extended distally in a lazy-S fashion approximately 1 cm medial to the biceps tendon. I then continued to release the capsule along the inferior neck in a vertical fashion to approximately the 6 o'clock position. Great care was taken to ensure that the capsule was always visualized as it was released as to avoid injuring the axillary nerve. I then brought a [employer] payroll accounting clerk, and with the arm externally rotated and abducted, I continued to release the capsule inferomedially to approximately the 4 o'clock position. The inferior osteophytes were now removed as well. This was done with a rongeur. I then proceeded with preparation of the humerus. I removed all the goat's young osteophytes. I then removed the subchondral plate from the superior aspect of the humeral head using a large rongeur. I then utilized a starting reamer to gain access to the humeral canal. This was approximately 1 cm medial to the rotator cuff insertion and 1 cm posterior to the bicipital groove. I then prepared the humeral canal with hand reaming. I started with a 6 mm reamer and incrementally increased up until firm resistance was encountered at 8 mm. The reamer handle was then left in place. I then utilized a humeral resection guide set at 30 degrees of retrotorsion. The cutting block was then set approximately 1-2 mm above the insertion of the rotator cuff. I then proceeded to osteotomize the humeral head with an oscillating saw. I then removed the resection guide and completed the osteotomy. I then proceeded with trial stem placement. I started with a size 6 broach and broached incrementally up to a size 8 mm broach. The 8 mm trial broach was then left in place. I then proceeded with trial reduction. I started with a 42 x 18 x 46 mm head. This seemed to fit very nicely. The head fit opposite the glenoid. The rotator cuff was not tented. The internal rotation was to 90 degrees, elevation was to 150 degrees, and translation of the head was one half of the head in neutral rotation and one quarter of the head inferiorly in 15-20 degrees of abduction. I then removed the trial head. The stem was left in place. I then proceeded with exposure of the glenoid. At this point, I did release the biceps tendon. This was tenotomized at the level of the superior labrum. A bone hook was then utilized to pull the humerus out laterally. I inspected the joint for any loose bodies. There were a few loose bodies inferiorly. These were easily removed. The condition of the rotator cuff was then again inspected. It was in excellent condition. The Bhattman retractor was then placed on the posterior glenoid rim. Arm was placed in approximately 80 degrees of abduction and in slight flexion on the Maddox stand. I then proceeded to remove the hypertrophic labrum to definitively identify the actual glenoid. I then selected for the size of the glenoid. A size 2 glenoid seemed to fit very nicely. I then utilized a starting drill to make the centering hole. I then proceeded to ream the glenoid fossa. This is done with the size 2 reamer. The reaming was taken down just to the paprika-type sign. I had a nice bleeding surface. I took as little glenoid reaming as possible so as to preserve as much subchondral bone as possible. I then proceeded to place the glenoid drill holes. The peripheral drill holes were then placed, and the center hole was also drilled as well. I then proceeded with cementing. I Waterpik'd the wound and the bone. The drill holes were then packed with Ray-Wanda sponges. One pack of antibiotic bone cement was prepared on the back table by the assistant professor surgical technology. The drill holes were then packed with cement utilizing a 20 mL syringe. These were packed very tightly. There was not any cement added to the central PEG hole. I then placed a small amount of cement on the posterior aspect of the real glenoid component as well. I then impacted the real glenoid into place. It was a Biomet size 2 pegged glenoid component with a Regenerex central peg. Excess cement was removed utilizing a Belton elevator. Pressure was held on the glenoid component until the cement had hardened. I then removed the Fukuda retractor. I then proceeded with humeral component trial reduction with the real glenoid. A 42 x 18 x 46 head was then placed back onto the stem. Again this was taken through a trial. The head fit opposite the glenoid. The rotator cuff was not tented. Elevation was to 150 degrees, internal rotation was to 90 degrees, and translation was one half of the head in neutral rotation, one quarter of the head in 15-20 degrees of abduction. I then had the branch customer service representative open a 42 x 18 x 46 real head and a size 8 mini Biomet stem. The stem was then impacted in the canal in 30 degrees of retrotorsion. The real head was then impacted onto a dried Munoz taper onto the stem. The shoulder was then reduced. I then proceeded with closure. The wound was again thoroughly irrigated with sterile saline solution with antibiotic added. The rotator interval was closed with #2 coated Vicryl interrupted suture. The subscapularis was repaired with 1.3 mm Fiber tape interrupted suture. A deep drain was then placed and brought out superiorly away from the incision. Approximately 500 mg of vancomycin powder was then placed deep. The deltopectoral interval was then closed with interrupted 0 Vicryl interrupted suture. Again the wound was thoroughly irrigated at this point. The remaining 500 mg of vancomycin powder was then placed subcutaneously. The subcutaneous tissue was then closed with 2-0 Vicryl interrupted suture. The skin was closed with a running 3-0 Quill suture. Dermabond was applied to the incision. A sterile compressive dressing was applied. The patient's right upper extremity was placed into a standard sling. Of note, prior to closure I did feel for the axillary nerve, which was readily palpable and uninjured in the case. All sponge and needle counts were deemed correct prior to closure. The patient tolerated the procedure without apparent complication. She was transferred to the recovery room in stable condition. MMODL / IJN: [id number] /
[2021-03-21] MEDS: LACTATED RINGERS 1,000 ML IV SCH ×3 (16:11→23:13)
--- NOTE | 2021-03-21 16:29 | P.CONS ---
History of Present Illness - History of Present Illness This is a pleasant 65 years old female with past medical history of hyperlipi demia, hypertension, osteoarthritis, CVA/TIA. She is patient of Dr. Tuttle. She was admitted for severe right shoulder osteoarthritis status post right total shoulder replacement/arthroplasty Patient was recently treated for UTI about 2 weeks ago. At that time she has increased frequency of urination which is improved with treatment. Now her urine is back to normal. She denies any change in frequency. No dysuria. No change in urine urgency. No suprapubic tenderness No chest pain or dyspnea. No coughing. No diarrhea or abdominal pain. No headache or dizziness Vital signs stable. Labs done on 03/05 showing u BMP is unremarkable with normal electrolytes, sodium, potassium and normal creatinine. Liver enzymes are normal. TSH is normal at 2.2. nremarkable CBC except for mild anemia with hemoglobin 10.1. WBC and platelets are normal at 4.3 and 219 respectively. INR is 0.9 Urinalysis is suspicious for infection Review of Systems CONSTITUTIONAL: No fever, no malaise, no fatigue. HEENT: No recent visual problems or hearing problems. Denied any sore throat. CARDIOVASCULAR: No orthopnea, PND, no palpitations, no syncope. PULMONARY: No shortness of breath, no cough, no hemoptysis. GASTROINTESTINAL: No diarrhea, no nausea, no vomiting, no abdominal pain. Normoactive bowel sounds. NEUROLOGICAL: No headaches, no weakness, no numbness. HEMATOLOGICAL: Denies any bleeding or petechiae. GENITOURINARY: Denies any burning micturition, frequency, or urgency. MUSCULOSKELETAL/RHEUMATOLOGICAL: Denies any joint pain, swelling, or any muscle pain. ENDOCRINE: Denies any polyuria or polydipsia. Past Medical History Past Medical History: CVA/TIA, Hyperlipidemia, Hypertension, Osteoarthritis (OA) Additional Past Medical History / Comment(s): TIA-no residual effects, varicose veins, History of Any Multi-Drug Resistant Organisms: None Reported Past Surgical History: Back Surgery, Joint Replacement, Tonsillectomy Additional Past Surgical History / Comment(s): band and 6 screws in back, felisha hip replacement, felisha knee replacements Past Anesthesia/Blood Transfusion Reactions: No Reported Reaction Past Psychological History: No Psychological Hx Reported Smoking Status: Former smoker Past Alcohol Use History: Occasional Additional Past Alcohol Use History / Comment(s): quit smoking 30 yrs ago, smoked for 5 yrs, "light smoker" Past Drug Use History: None Reported - Past Family History Mother Family Medical History: Cancer Additional Family Medical History / Comment(s): ovarian Medications and Allergies Home Medications Medication Instructions Recorded Confirmed Type Aspirin [Adult Low Dose Aspirin EC] 81 mg PO DAILY 02/02/19 03/21/21 History Atorvastatin [Lipitor] 40 mg PO DAILY 02/02/19 03/21/21 History Ferrous Sulfate [Iron] 325 mg PO DAILY 02/02/19 03/21/21 History Living Well Heel And Smooth TOPICAL DAILY 02/02/19 07/13/19 History QUEtiapine [SEROquel] 100 mg PO HS 02/02/19 03/21/21 History lisinopriL [Zestril] 5 mg PO HS 02/02/19 03/21/21 History HYDROcodone/APAP 7.5-325MG [[place] 1 - 2 each PO Q6HR PRN #56 tab 02/10/19 03/21/21 Rx 7.5-325] Docusate [Colace] 100 mg PO DAILY 03/19/21 03/21/21 History Meloxicam [Mobic] 15 mg PO DAILY 03/19/21 03/21/21 History traZODone HCL [Desyrel] 100 mg PO HS 03/19/21 03/21/21 History Docusate [Colace] 100 mg PO BID #60 cap 03/21/21 Rx Doxycycline Hyclate 100 mg PO BID #10 tab 03/21/21 Rx Allergies Allergy/AdvReac Type Severity Reaction Status Date / Time Penicillins Allergy Rash/Hives Verified 03/21/21 06:26 Physical Exam Vitals: Vital Signs Temp Pulse Pulse Resp BP BP Pulse Ox 03/21/21 14:00 97.7 F 75 16 135/71 93 L 03/21/21 12:45 73 16 105/69 99 03/21/21 12:14 62 16 112/65 96 03/21/21 11:45 78 16 116/70 96 03/21/21 11:05 69 16 114/63 100 03/21/21 10:51 82 16 119/67 100 03/21/21 10:36 70 16 114/55 100 03/21/21 10:21 97.4 F L 88 16 126/67 100 10/21/21 06:59 97.8 F 70 16 142/104 97 Intake and Output 03/21/21 03/21/21 03/21/21 06:59 14:59 22:59 Intake Total 200 1150 Output Total 100 350 Balance 200 1050 -350 Intake: IV 200 1150 Output: Drainage 0 Right Shoulder 0 Urine 350 Estimated Blood Loss 100 Other: # Voids 2 Weight 86.5 kg 86.5 kg GENERAL: The patient is alert and oriented x3, not in any acute distress. Well developed, well nourished. HEENT: Pupils are round and equally reacting to light. EOMI. No scleral icterus. No conjunctival pallor. Normocephalic, atraumatic. No pharyngeal erythema. No thyromegaly. CARDIOVASCULAR: S1 and S2 present. No murmurs, rubs, or gallops. PULMONARY: Chest is clear to auscultation, no wheezing or crackles. ABDOMEN: Soft, nontender, nondistended, normoactive bowel sounds. No palpable organomegaly. -MUSCULOSKELETAL: No joint swelling or deformity. Right shoulder and sling. With a dressing in place, rest of exam is deferred to surgery team EXTREMITIES: No cyanosis, clubbing, or pedal edema. NEUROLOGICAL: Gross neurological examination did not reveal any focal deficits. SKIN: No rashes. No petechiae Assessment and Plan Assessment: severe right shoulder osteoarthritis status post right total shoulder arthroplasty Recent history of Urinary tract infection. 2 weeks ago that is been treated and patient currently is asymptomatic Hypertension Hyperlipidemia History of Osteoarthritis History of CVA/TIA. History of back surgery and Tubbs replacement. Plan: This is a pleasant 65 years old female who presents with shoulder replacement. Continue with pain management and DVT prophylaxis per surgery team Check bladder scan when needed Labs and medication were reviewed.. Continue same treatment. Continue with symptomatic treatment. Resume home medication. Monitor lytes and vitals. DVT and GI prophylaxis. Further recommendations depends on the clinical course of the patient DVT prophylaxis: Subcutaneous heparin PT/OT: Pending Comment patient follow up with her PCP in one week after discharge, patient was instructed with the same Thank you for consulting us, we will follow up with the patient
[2021-03-21] MEDS ORDERED: traZODone HCL 100 MG TAB PO SCH (21:00)
[2021-03-21] MEDS ORDERED: lisinopriL 5 MG TAB PO SCH (21:00)
[2021-03-21] MEDS ORDERED: QUEtiapine 100 MG TAB PO SCH (21:00)
[2021-03-22] MEDS: HYDROcodone/APAP 10-325MG 1 EACH TAB PO PRN ×2 (02:07→07:52)
[2021-03-22 07:18] VITALS: BP 120/66; PULSE 75; RESP 17; TEMP 97.6
[2021-03-22] MEDS ORDERED: DOCUSATE 100 MG CAP PO SCH (09:00)
[2021-03-22] MEDS ORDERED: FERROUS SULFATE 325 MG TAB PO SCH (09:00)
[2021-03-22] MEDS ORDERED: ASPIRIN 81 MG PO SCH (09:00)
[2021-03-22] MEDS ORDERED: ATORVASTATIN 40 MG TAB PO SCH (09:00)
[2021-03-22 10:11] LABS: HCT 31.8 % (37.2-46.3); MCH 24.9 pg (27.0-32.0); MCHC 28.3 g/dL (32.0-37.0); MCV 87.8 fL (80.0-97.0); Mean Platelet Volume 11.4 fL (9.5-12.2); Platelet Count 259 X 10*3/uL (140-440); RBC 3.62 X 10*6/uL (4.10-5.20); RDW 22.5 % (11.5-14.5); WBC 7.91 X 10*3/uL (4.50-10.00)
--- NOTE | 2021-03-22 10:58 | P.DS ---
Providers Expected date of discharge: 03/22/21 Attending physician: Harley Nuñez Consults: 03/21/21 10:20 Consult Physician Routine Consulting Provider: Luke Martinez Consult Reason/Comments: post op medical management Do you want consulting provider notified?: Yes Primary care physician: [place] Tuttle - Discharge Diagnosis(es) (1) Osteoarthritis of right shoulder Patient was admitted to the OR on 03/21/2021 to undergo a right total shoulder arthroplasty. She had failed conservative measures as an outpatient and desired to proceed with elective surgery after given informed consent. She underwent the above procedure which she tolerated well without complication. Postoperative hospital course has remained without complication. On day of discharge she is afebrile, vital signs stable, labs within acceptable ranges, tolerating by mouth meds and diet, voiding without difficulty, positive flatus, denies abdominal pain or calf pain, pain is controlled on oral pain medication and has no new complaints. Wound is benign, neurovascular status is intact, calves are soft and nontender, abdomen soft and nontender. Review of systems is negative for numbness, tingling, fever, chills, chest pain, shortness of breath, nausea, vomiting, dizziness, headaches, slurred speech or other. Current Visit: Yes Status: Acute Priority: Medium Procedures: Right TSA Patient Condition at Discharge: Good Plan - Discharge Summary Discharge Rx Participant: No New Discharge Prescriptions: New Docusate [Colace] 100 mg PO BID #60 cap Doxycycline Hyclate 100 mg PO BID #10 tab Docusate [Colace] 100 mg PO BID #60 cap HYDROcodone/APAP 10-325MG [[place] 10-325] 1 tab PO Q4HR PRN #42 tab PRN Reason: Pain No Action QUEtiapine [SEROquel] 100 mg PO HS Ferrous Sulfate [Iron] 325 mg PO DAILY Atorvastatin [Lipitor] 40 mg PO DAILY Aspirin [Adult Low Dose Aspirin EC] 81 mg PO DAILY lisinopriL [Zestril] 5 mg PO HS Living Well Heel And Smooth TOPICAL DAILY HYDROcodone/APAP 7.5-325MG [[place] 7.5-325] 1 - 2 each PO Q6HR PRN #56 tab PRN Reason: Pain Docusate [Colace] 100 mg PO DAILY Meloxicam [Mobic] 15 mg PO DAILY traZODone HCL [Desyrel] 100 mg PO HS Discharge Medication List Aspirin [Adult Low Dose Aspirin EC] 81 mg PO DAILY 02/02/19 [History] Atorvastatin [Lipitor] 40 mg PO DAILY 02/02/19 [History] Ferrous Sulfate [Iron] 325 mg PO DAILY 02/02/19 [History] Living Well Heel And Smooth TOPICAL DAILY 02/02/19 [History] QUEtiapine [SEROquel] 100 mg PO HS 02/02/19 [History] lisinopriL [Zestril] 5 mg PO HS 02/02/19 [History] HYDROcodone/APAP 7.5-325MG [[place] 7.5-325] 1 - 2 each PO Q6HR PRN #56 tab 02/10/19 [Rx] Docusate [Colace] 100 mg PO DAILY 03/19/21 [History] Meloxicam [Mobic] 15 mg PO DAILY 03/19/21 [History] traZODone HCL [Desyrel] 100 mg PO HS 03/19/21 [History] Docusate [Colace] 100 mg PO BID #60 cap 03/21/21 [Rx] Doxycycline Hyclate 100 mg PO BID #10 tab 03/21/21 [Rx] Docusate [Colace] 100 mg PO BID #60 cap 03/22/21 [Rx] HYDROcodone/APAP 10-325MG [[place] 10-325] 1 tab PO Q4HR PRN #42 tab 03/22/21 [Rx] Follow up Appointment(s)/Referral(s): Montana Tuttle MD [Primary Care Provider] - 1 Week (The office is closed please call thursday and make your follow up appointment.) Harley Nuñez MD [STAFF PHYSICIAN] - 04/01/21 1:30 pm Activity/Diet/Wound Care/Special Instructions: Non weightbearing maintain sling keep clean and dry take meds as directed Discharge Disposition: HOME SELF-CARE
[2021-03-22 13:14] LABS: Basophils # (A) 0.01 X 10*3/uL (0.00-0.10); Basophils % (A) 0.1 %; Eosinophils # (A) 0 X 10*3/uL (0.04-0.35); Eosinophils % (A) 0 %; Lymphocytes # (A) 0.68 X 10*3/uL (0.90-5.00); Lymphocytes % (A) 8.6 %; Monocytes # (A) 0.65 X 10*3/uL (0.20-1.00); Monocytes % (A) 8.2 %; Neutrophils # (A) 6.54 X 10*3/uL (1.80-7.70); Neutrophils % (A) 82.7 %
== END 2021-03-22 11:35 | disposition home or self-care (01) ==
LOC: OR 05:34 → 4SSUR 10:16 → OR 03-22 11:35
PROVIDERS: ATTEND Orthopaedic Surgery Sports Medicine
DX: M19.011 Primary osteoarthritis, right shoulder (principal); I10 Essential (primary) hypertension; E78.2 Mixed hyperlipidemia; D64.9 Anemia, unspecified; Z86.73 Personal history of transient ischemic attack (TIA), and cerebral infarction without residual deficits; R63.4 Abnormal weight loss; Z97.3 Presence of spectacles and contact lenses; M25.711 Osteophyte, right shoulder; E78.00 Pure hypercholesterolemia, unspecified; E66.8 Other obesity; Z68.27 Body mass index [BMI] 27.0-27.9, adult; Z82.49 Family history of ischemic heart disease and other diseases of the circulatory system; Z79.1 Long term (current) use of non-steroidal anti-inflammatories (NSAID); Z79.82 Long term (current) use of aspirin; Z79.891 Long term (current) use of opiate analgesic; Z79.899 Other long term (current) drug therapy; Z88.0 Allergy status to penicillin
CPT/HCPCS: 64415; 76942; 85025; 88300; 73020; 23472; C1776; C1713; J2250; J3370; J1100; J2710; J0690; J2405; J2001; J3010; J1170; J2795; J0330; J2704

== ENCOUNTER 2021-11-29 07:39 | Day surgery (SDC) | payer MEDICARE, OTHER ==
[~2021-11-29 07:39] MED LIST changes: -ACETAMINOPHEN TAB 500 MG TAB PO PRN; -GABAPENTIN 300 MG CAP PO PRN; +LACTATED RINGERS 1,000 ML IV SCH; -ONDANSETRON 4 MG/2 ML VIAL IVP PRN; -TRANEXAMIC ACID 1,000 MG in SODIUM CHLORIDE 0.9% 100 ML IVPB PRN
[2021-11-29 08:04] VITALS: RESP 16; TEMP 97.5
[2021-11-29] MEDS ORDERED: PROPOFOL 10 MG/ML 20 ML VIAL IV ONE (09:08)
--- NOTE | 2021-11-29 09:29 | P.PCN ---
Date of Procedure: 11/29/21 Procedure(s) Performed: BRIEF HISTORY: Patient is a 66-year-old pleasant female scheduled for an elective colonoscopy as a part of positive:cologuard. No prior history of colonoscopy in the past PROCEDURE PERFORMED: Colonoscopy. PREOPERATIVE DIAGNOSIS: Positive cologuard IV sedation per Anesthesia. PROCEDURE: After informed consent was obtained, the patient, was brought into the endoscopy unit. IV sedation was administered by Anesthesia under continuous monitoring. Digital rectal examination was normal. Initially the Olympus CF-160 flexible video colonoscope was then inserted in the rectum, gradually advanced into the cecum without any difficulty. Careful examination was performed as the scope was gradually being withdrawn. Ileocecal valve and the appendiceal orifice were visualized and appeared normal. Prep was excellent. Mucosa of the cecum, ascending colon, transverse colon, descending colon, sigmoid colon, and rectum appeared normal. Retroflexion was performed in the rectum and no lesions were seen. The patient tolerated the procedure well. IMPRESSION: Normal-appearing colon from rectum to cecum with no evidence of colorectal neoplasia. Scattered sigmoid diverticulosis RECOMMENDATIONS: Findings of this examination were discussed with the patient as well as her family. She was advised to have a repeat screening colonoscopy in 10 years
[2021-11-29 09:52] VITALS: BP 136/86; PULSE 61
== END 2021-11-29 10:10 | disposition home or self-care (01) ==
LOC: ORWHC2ENDO 07:39
PROVIDERS: ATTEND Internal Medicine Gastroenterology
DX: K57.30 Diverticulosis of large intestine without perforation or abscess without bleeding (principal); I10 Essential (primary) hypertension; E78.5 Hyperlipidemia, unspecified; Z87.891 Personal history of nicotine dependence; Z86.73 Personal history of transient ischemic attack (TIA), and cerebral infarction without residual deficits; Z88.0 Allergy status to penicillin; Z79.1 Long term (current) use of non-steroidal anti-inflammatories (NSAID); Z80.41 Family history of malignant neoplasm of ovary
CPT/HCPCS: 45378; J2704

== ENCOUNTER 2023-08-04 20:55 | Emergency (ER) | payer MEDICARE ==
[2023-08-04 21:06] VITALS: TEMP 98.3
--- NOTE | 2023-08-04 21:10 | ED ---
Animal Bite HPI - General Chief Complaint: Animal Bite Stated Complaint: Dog bite rt hand Time Seen by Provider: 08/04/23 21:03 Source: patient Mode of arrival: ambulatory Limitations: no limitations - History of Present Illness Initial Comments: 67-year-old female presenting with chief complaint of dog bite. Patient thought that her dog was choking, she put her hand near the dog's mouth which resulted in the bite. Her last tetanus shot was less than 7 years ago. Bite affects the right fifth digit. Does appear deformed. Laceration is about 4 cm in length. Bleeding is controlled at this time. - Related Data Home Medications Medication Instructions Recorded Confirmed Atorvastatin [Lipitor] 40 mg PO HS 02/02/19 11/29/21 QUEtiapine [SEROquel] 100 mg PO HS 02/02/19 11/27/21 lisinopriL [Zestril] 5 mg PO HS 02/02/19 11/27/21 Meloxicam [Mobic] 7.5 mg PO DAILY 03/19/21 11/29/21 traZODone HCL [Desyrel] 100 mg PO HS 03/19/21 11/27/21 Ferrous Sulfate [Feosol] 325 mg PO DAILY 11/27/21 11/27/21 Previous Rx's Medication Instructions Recorded HYDROcodone/APAP 7.5-325MG [[place] 1 - 2 each PO Q6HR PRN #56 tab 02/10/19 7.5-325] Allergies Allergy/AdvReac Type Severity Reaction Status Date / Time Penicillins Allergy Rash/Hives Verified 11/29/21 07:55 Review of Systems ROS Statement: Those systems with pertinent positive or pertinent negative responses have been documented in the HPI. ROS Other: All systems not noted in ROS Statement are negative. Past Medical History Past Medical History: CVA/TIA, Hyperlipidemia, Hypertension, Osteoarthritis (OA) Additional Past Medical History / Comment(s): TIA 4 yrs. ago-no residual effects, varicose veins, cologard positive History of Any Multi-Drug Resistant Organisms: None Reported Past Surgical History: Back Surgery, Joint Replacement, Tonsillectomy Additional Past Surgical History / Comment(s): band and 6 screws in back, felisha hip replacement, felisha knee replacements, right shoulder replacement 2020 Past Anesthesia/Blood Transfusion Reactions: No Reported Reaction Past Psychological History: No Psychological Hx Reported Smoking Status: Former smoker - Past Family History Mother Family Medical History: Cancer Additional Family Medical History / Comment(s): ovarian General Exam Limitations: no limitations General appearance: alert, in no apparent distress Head exam: Present: atraumatic, normocephalic Eye exam: Present: normal appearance Neck exam: Present: normal inspection Respiratory exam: Absent: respiratory distress Cardiovascular Exam: Present: regular rate Right Hand Wrist exam: Present: laceration, deformity (Right fifth digit) Neurological exam: Present: alert, oriented X3 Psychiatric exam: Present: normal affect, normal mood Expanded Type of lesion: Present: laceration (3cm R 5th digit) Course Vital Signs 08/04/23 08/05/23 20:57 01:04 Temperature 98.3 F Pulse Rate 69 71 Respiratory 18 19 Rate Blood Pressure 132/68 145/86 O2 Sat by Pulse 98 100 Oximetry Medical Decision Making - Medical Decision Making Was pt. sent in by a medical professional or institution (, PA, [employer], urgent care, hospital, or correction...) When possible be specific @ -No Did you speak to anyone other than the patient for history (EMS, parent, family, police, friend...)? What history was obtained from this source @ -No Did you review nursing and triage notes (agree or disagree)? Why? @ -I reviewed and agree with nursing and triage notes Were old charts reviewed (outside hosp., previous admission, EMS record, old EKG, old radiological studies, urgent care reports/EKG's, correction records)? Report findings @ -No old charts were reviewed Differential Diagnosis (chest pain, altered mental status, abdominal pain women, abdominal pain men, vaginal bleeding, weakness, fever, dyspnea, syncope, headache, dizziness, GI bleed, back pain, seizure, CVA, palpatations, mental health, musculoskeletal)? @ -Differential Musculoskeletal Muscular strain, contusion, ligament sprain, fracture, arthritis, septic arthritis, bursitis, cellulitis, muscle spasm, nerve compression, DVT, arterial occlusion, herpes zoster, electrolyte abnormality, tumor.... This is not meant to be in all inclusive list EKG interpreted by me (3pts min.). @ -As above X-rays interpreted by me (1pt min.). @ -X-ray shows displaced fracture of the distal aspect of the proximal phalanx of the fifth digit with associated posterior subluxation of the interphalangeal joint CT interpreted by me (1pt min.). @ -None done U/S interpreted by me (1pt. min.). @ -None done What testing was considered but not performed or refused? (CT, X-rays, U/S, labs)? Why? @ -None What meds were considered but not given or refused? Why? @ -None Did you discuss the management of the patient with other professionals (professionals i.e. DrDanilo, PA, [employer], lab, RT, psych nurse, manager social media, senior fire protection engineer, teacher, police commanding officer, shoe parts caser)? Give summary @ -I spoke with orthopedist on-call Dr. Nuñez who advised transfer. I spoke with Dr. Deluna at [facility] who accepted transfer Was smoking cessation discussed for >3mins.? @ -No Was critical care preformed (if so, how long)? @ -No Were there social determinants of health that impacted care today? How? (Homelessness, low income, unemployed, alcoholism, drug addiction, transportation, low edu. Level, literacy, decrease access to med. care, retirement, rehab)? @ -No Was there de-escalation of care discussed even if they declined (Discuss DNR or withdrawal of care, Hospice)? DNR status @ -No What co-morbidities impacted this encounter? (DM, HTN, Smoking, COPD, CAD, Cancer, CVA, ARF, Chemo, Hep., AIDS, mental health diagnosis, sleep apnea, morbid obesity)? @ -None Was patient admitted / discharged? Hospital course, mention meds given and route, prescriptions, significant lab abnormalities, going to OR and other pertinent info. @ -67-year-old female presenting with chief complaint of dog bite. Her dog accidentally bit her at home. She has a 4 cm laceration to the right fifth digit. On x-ray there is a displaced fracture of the proximal phalanx. Given the nature of this injury this open fracture has high risk for infection. I spoke with our orthopedist on-call Dr. Nuñez who advised transfer. Patient will be transferred to [facility]. The wound is irrigated with 1 L of sterile water. Patient is given 2 g of Ancef. Patient is agreeable with this plan. I discussed this case with my attending Dr. Love Undiagnosed new problem with uncertain prognosis? @ -No Drug Therapy requiring intensive monitoring for toxicity (Heparin, Nitro, Insulin, Cardizem)? @ -No Were any procedures done? @ -No Diagnosis/symptom? @ -Open fracture, dog bite Acute, or Chronic, or Acute on Chronic? @ -Acute Uncomplicated (without systemic symptoms) or Complicated (systemic symptoms)? @ -Complicated Side effects of treatment? @ -No Exacerbation, Progression, or Severe Exacerbation? @ -No Poses a threat to life or bodily function? How? (Chest pain, USA, SC, pneumonia, PE, COPD, DKA, ARF, appy, cholecystitis, CVA, Diverticulitis, Homicidal, Suicidal, threat to staff... and all critical care pts) @ -Yes Disposition Clinical Impression: Dog bite, Open fracture of proximal phalanx of digit of right hand Disposition: OTHER INSTITUTION NOT DEFINED Condition: Stable Instructions (If sedation given, give patient instructions): Animal Bite (ED) Referrals: Montana Tuttle MD [Primary Care Provider] - 1-2 days - Out of Hospital Transfer - Req. Specs Out of Hospital Transfer - Requested Specifics: Other Emergency Center ([facility])
[2023-08-04] MEDS: MORPHINE SULFATE 2 MG/ML SYRINGE IM STA (21:17)
[2023-08-04] MEDS: IBUPROFEN 600 MG TAB PO STA (21:19)
[2023-08-04] MEDS: LIDOCAINE 1% INJ 10MG/ML (20 ML MDV) SQ ONE (21:20)
--- NOTE | 2023-08-04 21:38 | XR ---
EXAMINATION TYPE: XR hand complete RT DATE OF EXAM: 08/04/2023 9:26 PM CLINICAL INDICATION:Female, 67 years old with history of dog bite 5th digit; PH[facility] COMPARISON: None TECHNIQUE: Frontal, lateral and oblique views of the right hand were obtained. FINDINGS: There is a fracture involving the distal aspect of the proximal phalanx of the fifth digit. There is posterior displacement of the fracture as well as subluxation of the distal portion of the digit. Associated soft tissue edema is identified. No radiopaque foreign bodies are present. The isela ining osseous structures are intact. IMPRESSION: Displaced fracture of the distal aspect of the proximal phalanx of the fifth digit with associated po sterior subluxation of the interphalangeal joint.
[2023-08-04] MEDS: HYDROmorphone 1 MG/ML 1 ML SYRINGE IVP STA (23:18)
[2023-08-04] MEDS: HYDROmorphone 1 MG/ML 1 ML SYRINGE IM STA (23:20)
[2023-08-04] MEDS: AMPICILLIN-SULBACTAM 3 GM in SODIUM CHLORIDE 0.9% 100 ML IVPB STA (23:36)
[2023-08-05] MEDS: ONDANSETRON 4 MG/2 ML VIAL IVP STA (00:59)
[2023-08-05 01:39] VITALS: BP 145/86; PULSE 71; RESP 19
== END 2023-08-05 01:06 | disposition other institution (70) ==
LOC: EC 20:55
DX: S62.616B Displaced fracture of proximal phalanx of right little finger, initial encounter for open fracture (principal); I10 Essential (primary) hypertension; E78.5 Hyperlipidemia, unspecified; M19.90 Unspecified osteoarthritis, unspecified site; Z79.899 Other long term (current) drug therapy; Z88.0 Allergy status to penicillin; Z87.891 Personal history of nicotine dependence; Z86.73 Personal history of transient ischemic attack (TIA), and cerebral infarction without residual deficits; W54.0XXA Bitten by dog, initial encounter
CPT/HCPCS: 99284; 96365; 96375; 96372 ×2; 73130; J0690; J2405; J2001; J2270; J1170